=== PATIENT | male | born 1985 | race Asian ===

== ENCOUNTER 2018-08-02 10:07 | Inpatient (IN) | payer OTHER ==
[2018-08-02 10:18] VITALS: BMI 28.3
--- NOTE | 2018-08-02 10:57 | HP ---
CIWA Score - CIWA Score Nausea/Vomitin-No Nausea/No Vomiting Muscle Tremors: 1-None Visible, but [place] Anxiety: 4-Mod. Anxious/Guarded Agitation: 1-Slight > Activity Paroxysmal Sweats: No Perspiration Orientation: 0-Oriented Tacttile Disturbances: 0-None Auditory Disturbances: 0-None Visual Disturbances: 0-None Headache: 2-Mild CIWA-Ar Total Score: 8 Admission ROS BHS - HPI Allergies/Adverse Reactions: Allergies Allergy/AdvReac Type Severity Reaction Status Date / Time No Known Allergies Allergy Verified 08/02/18 10:41 History of Present Illness: patient here requesting detox from etoh use , reports 1 liter of whiskey / day x 3 years , longest sobriety x 1 month , detox 2-3 x , most recently 2 mo ago [facility] , denies w/d seizures , + blackouts, denies falls while intoxicated , latest this morning 2 beers. + intoxicated on exam . alex 0.112 symptoms as above in CIWA utox + bzo benzo : xanax 8 mg /day x 1 yr , latest last night 4 mg crack cocaine : 50 $ / week , lates 2 d ago cannabis : 1 j. weekly , latest last night tobacco : 2 ppd , requesting nrt w/ gum pmhx : denies pshx : denies psych : denies meds : denies - Ebola screening Have you traveled outside of the country in the last 21 days: No (N) Have you had contact with anyone from an Ebola affected area: No Have you been sick,other than usual withdrawal symptoms: No Do you have a fever: No - Review of Systems Constitutional: See HPI EENT: reports: See HPI Respiratory: reports: No Symptoms reported Cardiac: reports: No Symptoms Reported GI: reports: No Symptoms Reported : reports: No Symptoms Reported Musculoskeletal: reports: No Symptoms Reported Integumentary: reports: No Symptoms Reported Neuro: reports: See HPI, Headache Endocrine: reports: No Symptoms Reported Hematology: reports: No Symptoms Reported Psychiatric: reports: No Sypmtoms Reported, Judgement Intact, Orientated x3 Other Systems: Reviewed and Negative Patient History - Smoking Cessation Smoking history: Current every day smoker Have you smoked in the past 12 months: Yes Aproximately how many cigarettes per day: 40 Hx Chewing Tobacco Use: No Initiated information on smoking cessation: No - Substances Abused Crack Route: Smoking Frequency: 1-2 times per week Amount used: $50 Age of first use: 30 Date of Last Use: 07/31/18 Alcoholbeer/vodka/whisky Route: Oral Frequency: Daily Amount used: 2-6 pks./1 liter Age of first use: 16 Date of Last Use: 08/02/18 Xanax Route: Oral Frequency: 1-3 times last 30 days Amount used: 8 mg. Age of first use: 28 Date of Last Use: 08/01/18 Family Disease History - Family Disease History Family History: Denies Admission Physical Exam [facility] - Vital Signs Vital Signs: Vital Signs - 24 hr 08/02/18 10:16 Temperature 97.1 F L Pulse Rate 121 H Respiratory 18 Rate Blood Pressure 167/101 H - Physical General Appearance: Yes: Nourished, Appropriately Dressed, Disheveled, Mild Distress, Alcohol on Breath, Irritable, Sweating, Anxious HEENTM: Yes: Within Normal Limits, EOMI, Hearing grossly Normal, Normal ENT Inspection, Normocephalic, Normal Voice, MAURI, Pharynx Normal Respiratory: Yes: Within Normal Limits, Chest Non-Tender, Lungs Clear, Normal Breath Sounds, No Respiratory Distress, No Accessory Muscle Use Neck: Yes: Within Normal Limits, No masses,lesions,Nodules, Trachea in good position Breast: Yes: Breast Exam Deferred Cardiology: Yes: Regular Rhythm, Regular Rate, Tachycardia Abdominal: Yes: Within Normal Limits, Normal Bowel Sounds, Non Tender, Flat, Soft Genitourinary: Yes: Within Normal Limits Back: Yes: Within Normal Limits, Normal Inspection Musculoskeletal: Yes: Within Normal Limits, full range of Motion, Gait Steady, Pelvis Stable Extremities: Yes: Normal Capillary Refill, Normal Inspection, Normal Range of Motion, Non-Tender, Tremors Neurological: Yes: Within Normal Limits, Fully Oriented, Alert, Motor Strength 5 /5, Normal Mood/Affect, Normal Response Integumentary: Yes: Within Normal Limits, Normal Color, Dry, Warm Lymphatic: Yes: Within Normal Limits - Diagnostic (1) Alcohol withdrawal Current Visit: Yes Status: Acute Qualifiers: Complication of substance-induced condition: uncomplicated Qualified Code(s ): F10.230 - Alcohol dependence with withdrawal, uncomplicated BHS Breath Alcohol Content Breath Alcohol Content: 0.112 Urine Drug Screen - Results Drug Screen Negative: No Urine Drug Screen Results: BZO-Benzodiazepines
[2018-08-02] MEDS ORDERED: MAGNESIUM CITRATE 300 ML BOTTLE PO PRN (11:00)
[2018-08-02] MEDS ORDERED: P-EPHED 60MG/TRIPROLIDI 2.5MG TABLET PO PRN (11:00)
[2018-08-02] MEDS ORDERED: MAG HYDROX/AL HYDROX/SIMETH 30 ML UNIT-DOSE CUP PO PRN (11:00)
[2018-08-02] MEDS ORDERED: LOPERAMIDE HCL 2 MG CAPSULE PO PRN (11:00)
[2018-08-02] MEDS ORDERED: guaiFENesin/D-METHORPHAN HB 10 ML UNIT-DOSE CUPS PO PRN (11:00)
[2018-08-02] MEDS ORDERED: MENTHOL/PHENOL 1 EACH UD MM PRN (11:00)
[2018-08-02] MEDS ORDERED: MAGNESIUM HYDROX 2400MG/30ML ORAL SUSPENSION 30 ML CUP PO PRN (11:00)
[2018-08-02] MEDS ORDERED: diazePAM 5 MG TABLET PO ONE (12:15)
[2018-08-02] MEDS: NICOTINE POLACRILEX 4 MG GUM BUC PRN ×4 (13:11→20:01)
[2018-08-02] MEDS: IBUPROFEN 400 MG TABLET (FP) PO PRN ×2 (14:14→22:23)
[2018-08-02] MEDS: diazePAM 5 MG TABLET PO SCH ×2 (14:14→22:13)
[2018-08-02 17:10] LABS: URINE APPEARANCE CLEAR; URINE BILIRUBIN NEGATIVE (<2.0 mg/dL); URINE COLOR COLORLESS; URINE GLUCOSE (UA) NEGATIVE (NEGATIVE); URINE KETONE NEGATIVE (NEGATIVE); URINE LEUK ESTERASE NEGATIVE (NEGATIVE); URINE NITRITE NEGATIVE (NEGATIVE); URINE PROTEIN NEGATIVE (NEGATIVE); URINE UROBILINOGEN NEGATIVE mg/dL (0.2-1.0)
[2018-08-02] MEDS: diazePAM 5 MG TABLET PO PRN (17:11)
[2018-08-02] MEDS: ACETAMINOPHEN 325 MG TABLET (FP) PO PRN (18:03)
[2018-08-02] MEDS ORDERED: cloNIDine HCL 0.1 MG TABLET PO ONE (19:29)
[2018-08-02] MEDS ORDERED: MELATONIN 5 MG TABLETS PO PRN (22:00)
[2018-08-02] MEDS: THIAMINE HCL 100 MG TABLET (FP) PO SCH (22:13)
[2018-08-03] MEDS: diazePAM 5 MG TABLET PO PRN ×5 (01:43→21:13)
[2018-08-03] MEDS: NICOTINE POLACRILEX 4 MG GUM BUC PRN ×5 (04:49→18:45)
[2018-08-03] MEDS: diazePAM 5 MG TABLET PO SCH ×3 (05:50→23:08)
[2018-08-03] MEDS: ACETAMINOPHEN 325 MG TABLET (FP) PO PRN ×2 (07:44→17:48)
[2018-08-03] MEDS ORDERED: METOPROLOL TARTRATE 25 MG TABLET (FP) PO ONE (08:50)
--- NOTE | 2018-08-03 09:01 | PN ---
S CIWA - CIWA Score Nausea/Vomitin Muscle Tremors: 3 Anxiety: 3 Agitation: 3 Paroxysmal Sweats: 3 Orientation: 0-Oriented Tacttile Disturbances: 1-Very Mild Itch/Numbness Auditory Disturbances: 1-Very Mild Visual Disturbances: 1-Very Mild Sensitivity Headache: 2-Mild CIWA-Ar Total Score: 19 BHS COWS - Scale Resting Pulse: 4= MO > 121 Sweatin=Flushed/Facial Moisture Restless Observation: 1= Difficult to Sit Still Pupil Size: 1= Pupils >than Normal Bone or Joint Aches: 2= Severe Diffuse Aches Runny Nose/ Eye Tearin= Runny Nose/Eyes GI Upset > 30mins: 2= Nausea/Diarrhea Tremor Observation of Outstretched Hands: 2= Slight Tremor Visible Yawning Observation: 1= 1-2x During Session Anxiety or Irritability: 2=Irritable/Anxious Goose Flesh Skin: 3=Piloerection COWS Score: 22 S Progress Note (SOAP) Subjective: Anxiety, irritable, tremors, interrupted sleep Objective: 08/03/18 08:58 Vital Signs 08/03/18 06:27 Temperature 97 F L Pulse Rate 125 H Respiratory 18 Rate Blood Pressure 139/84 Laboratory Last Values Urine Color Colorless 08/02/18 13:45 Urine Appearance Clear 08/02/18 13:45 Urine pH 7.0 (5.0-8.0) 08/02/18 13:45 Ur Specific [place] 1.002 (1.001-1.035) 08/02/18 13:45 Urine Protein Negative (NEGATIVE) 08/02/18 13:45 Urine Glucose (UA) Negative (NEGATIVE) 08/02/18 13:45 Urine Ketones Negative (NEGATIVE) 08/02/18 13:45 Urine Blood Negative (NEGATIVE) 08/02/18 13:45 Urine Nitrite Negative (NEGATIVE) 08/02/18 13:45 Urine Bilirubin Negative (<2.0 mg/dL) 08/02/18 13:45 Urine Urobilinogen Negative mg/dL (0.2-1.0) 08/02/18 13:45 Ur Leukocyte Esterase Negative (NEGATIVE) 08/02/18 13:45 UA noted-negative Labs pending Elevated heart rate, denies chest pain or palpitation Assessment: 08/03/18 09:01 Withdrawal sx with associated tachycardia Plan: Continue detox 1 dose of metoprolol tartrate 25mg now Repeat HR 1 hr post dose administration
[2018-08-03] MEDS: PRENATAL VITAMINS W/ FOLIC ACID TABLET (FP) PO SCH (09:09)
[2018-08-03 11:25] LABS: HEMATOCRIT 43.7 % (35.4-49); HEMOGLOBIN 14.4 GM/dL (11.7-16.9); MCH 30.1 pg (25.7-33.7); MCHC 32.9 g/dl (32.0-35.9); MEAN CELL VOLUME 91.4 fl (80-96); MEAN PLT VOLUME 6.7 fl (7.5-11.1); PLATELET COUNT 440 K/MM3 (134-434); RBC 4.78 M/mm3 (4.00-5.60); RDW 14.1 % (11.9-15.9); WHITE BLOOD COUNT 11.3 K/mm3 (4.0-10.0)
[2018-08-03 11:38] LABS: ALBUMIN 3.7 g/dl (3.4-5.0); ALK PHOS 61 U/L (45-117); ANION GAP 9 MMOL/L (8-16); BILIRUBIN,TOTAL 0.3 mg/dL (0.2-1); BLOOD UREA NITROGEN 12 mg/dL (7-18); CALCIUM 8.8 mg/dL (8.5-10.1); CHLORIDE 101 mmol/L (98-107); CO2 26 mmol/L (21-32); CREATININE 0.6 mg/dL (0.55-1.3); GLUCOSE,RANDOM 114 mg/dL (74-106); POTASSIUM 4.1 mmol/L (3.5-5.1); SGOT/AST 37 U/L (15-37); SGPT/ALT 71 U/L (13-61); SODIUM 136 mmol/L (136-145); TOT PROT 6.9 g/dl (6.4-8.2)
[2018-08-03] MEDS ORDERED: PNEUMOC 13-VAL CONJ-DIP CRM/PF 0.5 ML DISP.SYRIN IM ONE (12:00)
[2018-08-03] MEDS ORDERED: FLU VACCINE QUAD 60 MCG/0.5 ML (MDV 18-19) IM ONE (12:00)
--- NOTE | 2018-08-03 13:10 | CONSULT ---
[facility] Psychiatric Consult - Data Date of interview: 08/03/18 Admission source: [facility] Identifying data: First admission to [facility] for this 33 y/o [place] male from [place] ancestry self-referred for detoxification treatment (alcohol,xanax) . Reports sporadic use of crack/cocaine and cannabis.Admitted to [address] [place] [address]. Patient is single without dependents,homeless,unemployed and reportedly deprived of financial assistance. Substance Abuse History: Discussed with the patient in this session.Mr Chang admits to consuming up to 2 pints of whiskey + 3 x 40 oz of beer on a daily basis (onset of abuse at age 16).Smokes two packs of cigarettes daily and abuse xanax 3-4 times a week. Details in current [facility] report that follows : Smoking history: Current every day smoker. Have you smoked in the past 12 months: Yes. Aproximately how many cigarettes per day: 40. Hx Chewing Tobacco Use: No. Initiated information on smoking cessation: No. - Substances Abused. Crack. Route: Smoking. Frequency: 1-2 times per week. Amount used: $50. Age of first use: 30. Date of Last Use: 07/31/18. Alcoholbeer/vodka/whisky. Route: Oral. Frequency: Daily. Amount used: 2-6 pks./1 liter. Age of first use: 16. Date of Last Use: 08/02/18. Xanax. Route: Oral. Frequency: 1-3 times last 30 days. Amount used: 8 mg. Age of first use: 28. Date of Last Use : 08/01/18 Medical History: Patient endorses good general health.Hypertension in the context of alcohol withdrawal. Psychiatric History: Patient reports a history of multiple psychiatric hospitalizations ([facility] in [facility], [facility]).Onset of psychiatric disturbances ( age 16).Started out with depression,anxiety for which the patient was prescribed , at the time, paroxetine and other unnamed medications.Diagnosed with MDD and " psychosis ". Patient is an approximate historian.Mr Chang indicates that he gets his psychiatric OPD care at the [facility] OPD clinic but the review of recent pharmacy claims shows refills for trazodone 200 mg/hs + gabapentin 400 mg/90 tab/30 days + wellbutrin XL 150 mg/day + paliperidone 9 mg/30 tab/30 days + cogentin 2 mg/day at [facility] in [place] (dated 06/02/18).Refills for lamotrigine from earlier dates : also noted, suggestive of the diagnosis of Bipolar Disorder.Patient states that he got medicated with Invega IM " around May or June ".Cannot recall the exact dose dispensed. Information about current outpatient psychiatric OPD care providers remains vague and imprecise.Patient declares that he " does not always follow with my appointments ", a clear indication of sub-optimal adherence to aftercare. No reported history of suicide attempts. Physical/Sexual Abuse/Trauma History: Patient denies. Additional Comment: Urine Drug Screen Results: BZO-Benzodiazepines.Noted. Mental Status Exam - Mental Status Exam Alert and Oriented to: Time, Place, Person Cognitive Function: Good Patient Appearance: Well Groomed (short stature,overweight) Mood: Nervous, Anxious Affect: Mood Congruent Patient Behavior: Appropriate, Cooperative (pleasant and well-mannered) Speech Pattern: Clear, Appropriate Voice Loudness: Normal Thought Process: Goal Oriented Thought Disorder: Not Present Hallucinations: Denies Suicidal Ideation: Denies Homicidal Ideation: Denies Insight/Judgement: Poor Sleep: Poorly, Difficulty falling asleep Appetite: Good Muscle strength/Tone: Normal Gait/Station: Normal Psychiatric Findings - Problem List ([place] 1, 2,3) (1) Sedative hypnotic or anxiolytic dependence Current Visit: Yes Status: Acute (2) Alcohol withdrawal Current Visit: Yes Status: Acute Qualifiers: Complication of substance-induced condition: uncomplicated Qualified Code(s ): F10.230 - Alcohol dependence with withdrawal, uncomplicated (3) Alcohol dependence Current Visit: Yes Status: Acute (4) Nicotine dependence Current Visit: Yes Status: Acute Qualifiers: Nicotine product type: cigarettes Substance use status: uncomplicated Qualified Code(s): F17.210 - Nicotine dependence, cigarettes, uncomplicated (5) Substance induced mood disorder Current Visit: Yes Status: Acute (6) Bipolar disorder Current Visit: Yes Status: Suspected Comment: Inferred from the medications on file + patient's self-report.Non compliance with aftercare. (7) Insomnia Current Visit: Yes Status: Acute (8) Non-compliance with treatment Current Visit: Yes Status: Chronic - Initial Treatment Plan Initial Treatment Plan: Psychoeducation.Sleep hygiene discussed in this session.Detoxification in progress.Confirmation of medications via review of pharmacy claims : done. Patient has requested to resume his usual psychotropic medications.Will continue care with : wellbutrin XL 150 mg po daily + trazodone 100 mg po hs + gabapentin 300 mg po tid + risperdal 0.5 mg po bid.Side effects/ benefits of each drug are discussed with the patient.Made aware, in particular, of the risk of priapism,seizures,galactorrhea,gynecomastia,sexual impotence and sedation.Mr Chang denies history of adverse effects from these medications and he agrees to adhere to this regimen.Observation.
[2018-08-03] MEDS: GABAPENTIN 300 MG CAPSULE (FP) PO SCH ×2 (14:34→23:08)
[2018-08-03] MEDS: IBUPROFEN 400 MG TABLET (FP) PO PRN (15:38)
[2018-08-03] MEDS ORDERED: cloNIDine HCL 0.1 MG TABLET PO ONE (18:15)
--- NOTE | 2018-08-03 19:00 | PN ---
BHS Progress Note Note: glucose 114,will do fasting glucose,ptient requested ensure plus 120 mls po bid
[2018-08-03] MEDS: traZODone HCL 50 MG TABLET (FP) PO SCH (23:08)
[2018-08-03] MEDS: THIAMINE HCL 100 MG TABLET (FP) PO SCH (23:08)
[2018-08-03] MEDS: risperiDONE 0.5 MG TABLET (FP) PO SCH (23:08)
[2018-08-04] MEDS: diazePAM 5 MG TABLET PO SCH ×3 (03:56→22:30)
[2018-08-04] MEDS: GABAPENTIN 300 MG CAPSULE (FP) PO SCH ×3 (05:35→22:28)
[2018-08-04] MEDS: NICOTINE POLACRILEX 4 MG GUM BUC PRN ×4 (05:36→18:40)
[2018-08-04] MEDS: ACETAMINOPHEN 325 MG TABLET (FP) PO PRN (06:49)
[2018-08-04] MEDS: diazePAM 5 MG TABLET PO PRN ×3 (08:02→18:14)
[2018-08-04] MEDS: risperiDONE 0.5 MG TABLET (FP) PO SCH ×2 (10:25→22:30)
[2018-08-04] MEDS: PRENATAL VITAMINS W/ FOLIC ACID TABLET (FP) PO SCH (10:25)
[2018-08-04] MEDS ORDERED: cloNIDine HCL 0.1 MG TABLET PO PRN (10:35)
[2018-08-04] MEDS: IBUPROFEN 400 MG TABLET (FP) PO PRN (12:33)
[2018-08-04] MEDS: hydrOXYzine PAMOATE 50 MG CAPSULE (FP) PO PRN (12:33)
[2018-08-04] MEDS: CYCLOBENZAPRINE HCL 10 MG TABLET (FP) PO PRN ×2 (12:33→22:28)
--- NOTE | 2018-08-04 17:38 | PN ---
S CIWA - CIWA Score Nausea/Vomitin Muscle Tremors: 4-Moderate,w/Arms Extend Anxiety: 4-Mod. Anxious/Guarded Agitation: 4-Moderately Restless Paroxysmal Sweats: 3 Orientation: 0-Oriented Tacttile Disturbances: 0-None Auditory Disturbances: 0-None Visual Disturbances: 0-None Headache: 0-None Present CIWA-Ar Total Score: 18 BHS Progress Note (SOAP) Subjective: Anxious, restless, tremor, interrupted sleep Objective: 08/04/18 17:35 Last Vital Signs Temp Pulse Resp BP Pulse Ox 99.2 F 114 H 18 133/88 08/04/18 14:46 08/04/18 14:46 08/04/18 14:46 08/04/18 14:46 Laboratory Tests 08/02/18 08/03/18 08/03/18 13:45 06:00 06:00 WBC 11.3 H RBC 4.78 Hgb 14.4 Hct 43.7 MCV 91.4 MCH 30.1 MCHC 32.9 RDW 14.1 Plt Count 440 H MPV 6.7 L Sodium 136 Potassium 4.1 Chloride 101 Carbon Dioxide 26 Anion Gap 9 BUN 12 Creatinine 0.6 Creat Clearance w eGFR > 60 Random Glucose 114 H Fasting Glucose Calcium 8.8 Total Bilirubin 0.3 AST 37 ALT 71 H Alkaline Phosphatase 61 Total Protein 6.9 Albumin 3.7 Urine Color Colorless Urine Appearance Clear Urine pH 7.0 Ur Specific [place] 1.002 Urine Protein Negative Urine Glucose (UA) Negative Urine Ketones Negative Urine Blood Negative Urine Nitrite Negative Urine Bilirubin Negative Urine Urobilinogen Negative Ur Leukocyte Esterase Negative RPR Titer 08/03/18 08/04/18 06:00 07:49 WBC RBC Hgb Hct MCV MCH MCHC RDW Plt Count MPV Sodium Potassium Chloride Carbon Dioxide Anion Gap BUN Creatinine Creat Clearance w eGFR Random Glucose Fasting Glucose 88 Calcium Total Bilirubin AST ALT Alkaline Phosphatase Total Protein Albumin Urine Color Urine Appearance Urine pH Ur Specific [place] Urine Protein Urine Glucose (UA) Urine Ketones Urine Blood Urine Nitrite Urine Bilirubin Urine Urobilinogen Ur Leukocyte Esterase RPR Titer Nonreactive Labs reviewed: wbc 11.3 Assessment: 08/04/18 17:36 Withdrawal sx Noted with leukocytosis Plan: Continue detox Clonidine, vistaril and flexeril prn added due to increased withdrawal symptoms Leukocytosis: asymptomatic, repeat CBC
[2018-08-04] MEDS: cloNIDine HCL 0.1 MG TABLET PO PRN ×2 (18:14→22:28)
[2018-08-04] MEDS: traZODone HCL 50 MG TABLET (FP) PO SCH (22:28)
[2018-08-04] MEDS: THIAMINE HCL 100 MG TABLET (FP) PO SCH (22:31)
[2018-08-05] MEDS: GABAPENTIN 300 MG CAPSULE (FP) PO SCH ×3 (05:32→22:19)
[2018-08-05] MEDS: diazePAM 5 MG TABLET PO PRN (05:33)
[2018-08-05 10:26] LABS: BASO % 0.3 % (0-2.0); EOS % 1.3 % (0-4.5); HEMATOCRIT 38.9 % (35.4-49); HEMOGLOBIN 12.5 GM/dL (11.7-16.9); LYMPH % 13.6 % (8-40); MCH 29.6 pg (25.7-33.7); MCHC 32.2 g/dl (32.0-35.9); MEAN CELL VOLUME 91.9 fl (80-96); MEAN PLT VOLUME 6.5 fl (7.5-11.1); NEUT % 78.8 % (42.8-82.8); PLATELET COUNT 334 K/MM3 (134-434); RBC 4.23 M/mm3 (4.00-5.60); RDW 14.5 % (11.9-15.9); WHITE BLOOD COUNT 19.4 K/mm3 (4.0-10.0)
[2018-08-05] MEDS: PRENATAL VITAMINS W/ FOLIC ACID TABLET (FP) PO SCH (10:32)
[2018-08-05] MEDS: CYCLOBENZAPRINE HCL 10 MG TABLET (FP) PO PRN ×2 (10:32→16:58)
[2018-08-05] MEDS: risperiDONE 0.5 MG TABLET (FP) PO SCH ×2 (10:32→22:19)
[2018-08-05] MEDS: diazePAM 5 MG TABLET PO SCH ×2 (10:32→22:19)
[2018-08-05] MEDS: NICOTINE POLACRILEX 4 MG GUM BUC PRN ×3 (11:41→20:24)
[2018-08-05] MEDS: IBUPROFEN 400 MG TABLET (FP) PO PRN ×2 (11:41→22:51)
--- NOTE | 2018-08-05 13:54 | PN ---
BHS Progress Note (SOAP) Subjective: Interrupted sleep, tremor, chills, sweating Objective: 08/05/18 13:49 Last Vital Signs Temp Pulse Resp BP Pulse Ox 98.6 F 113 H 20 133/73 08/05/18 13:48 08/05/18 13:48 08/05/18 13:48 08/05/18 13:48 Laboratory Tests 08/02/18 08/03/18 08/03/18 13:45 06:00 06:00 WBC 11.3 H RBC 4.78 Hgb 14.4 Hct 43.7 MCV 91.4 MCH 30.1 MCHC 32.9 RDW 14.1 Plt Count 440 H MPV 6.7 L Absolute Neuts (auto) Neutrophils % Lymphocytes % Monocytes % Eosinophils % Basophils % Nucleated RBC % Sodium 136 Potassium 4.1 Chloride 101 Carbon Dioxide 26 Anion Gap 9 BUN 12 Creatinine 0.6 Creat Clearance w eGFR > 60 Random Glucose 114 H Fasting Glucose Calcium 8.8 Total Bilirubin 0.3 AST 37 ALT 71 H Alkaline Phosphatase 61 Total Protein 6.9 Albumin 3.7 Urine Color Colorless Urine Appearance Clear Urine pH 7.0 Ur Specific [place] 1.002 Urine Protein Negative Urine Glucose (UA) Negative Urine Ketones Negative Urine Blood Negative Urine Nitrite Negative Urine Bilirubin Negative Urine Urobilinogen Negative Ur Leukocyte Esterase Negative RPR Titer 08/03/18 08/04/18 08/05/18 06:00 07:49 07:00 WBC 19.4 H RBC 4.23 Hgb 12.5 Hct 38.9 MCV 91.9 MCH 29.6 MCHC 32.2 RDW 14.5 Plt Count 334 D MPV 6.5 L Absolute Neuts (auto) 15.3 H Neutrophils % 78.8 Lymphocytes % 13.6 Monocytes % 6.0 Eosinophils % 1.3 Basophils % 0.3 Nucleated RBC % 0 Sodium Potassium Chloride Carbon Dioxide Anion Gap BUN Creatinine Creat Clearance w eGFR Random Glucose Fasting Glucose 88 Calcium Total Bilirubin AST ALT Alkaline Phosphatase Total Protein Albumin Urine Color Urine Appearance Urine pH Ur Specific [place] Urine Protein Urine Glucose (UA) Urine Ketones Urine Blood Urine Nitrite Urine Bilirubin Urine Urobilinogen Ur Leukocyte Esterase RPR Titer Nonreactive Labs reviewed: wbc 19.4 (was 11.3) Assessment: 08/05/18 13:52 Withdrawal sxs Noted with leukocytosis Plan: Continue detox Leukocytosis: asymptomatic, repeat CBC, chest xray today
[2018-08-05] MEDS: hydrOXYzine PAMOATE 50 MG CAPSULE (FP) PO PRN (14:01)
[2018-08-05] MEDS: cloNIDine HCL 0.1 MG TABLET PO PRN (20:58)
[2018-08-05] MEDS: THIAMINE HCL 100 MG TABLET (FP) PO SCH (22:19)
[2018-08-05] MEDS: traZODone HCL 50 MG TABLET (FP) PO SCH (22:19)
[2018-08-06] MEDS: hydrOXYzine PAMOATE 50 MG CAPSULE (FP) PO PRN (00:38)
[2018-08-06] MEDS: CYCLOBENZAPRINE HCL 10 MG TABLET (FP) PO PRN (05:38)
[2018-08-06] MEDS: GABAPENTIN 300 MG CAPSULE (FP) PO SCH (05:38)
[2018-08-06] MEDS: cloNIDine HCL 0.1 MG TABLET PO PRN (05:49)
[2018-08-06] MEDS: ACETAMINOPHEN 325 MG TABLET (FP) PO PRN (09:20)
[2018-08-06 09:30] VITALS: BP 116/74; PULSE 105; TEMP 96.9
[2018-08-06] MEDS ORDERED: AZITHROMYCIN 250 MG TABLET PO ONE (10:00)
[2018-08-06] MEDS ORDERED: diazePAM 5 MG TABLET PO SCH ×2 (10:00)
[2018-08-06] MEDS: risperiDONE 0.5 MG TABLET (FP) PO SCH (10:23)
[2018-08-06] MEDS: PRENATAL VITAMINS W/ FOLIC ACID TABLET (FP) PO SCH (10:23)
[2018-08-06 10:33] LABS: BASO % 0.4 % (0-2.0); EOS % 2.3 % (0-4.5); HEMATOCRIT 39.8 % (35.4-49); HEMOGLOBIN 12.7 GM/dL (11.7-16.9); LYMPH % 24.6 % (8-40); MCH 29.8 pg (25.7-33.7); MCHC 31.8 g/dl (32.0-35.9); MEAN CELL VOLUME 93.8 fl (80-96); MEAN PLT VOLUME 6.8 fl (7.5-11.1); MONO % 6.8 % (3.8-10.2); NEUT % 65.9 % (42.8-82.8); PLATELET COUNT 321 K/MM3 (134-434); RBC 4.25 M/mm3 (4.00-5.60); WHITE BLOOD COUNT 14.1 K/mm3 (4.0-10.0)
[2018-08-07] MEDS ORDERED: AZITHROMYCIN 250 MG TABLET PO SCH (10:00)
== END 2018-08-06 13:43 | disposition other institution (70) | DRG 774 ==
LOC: YASAS 10:07 → Y3N 12:01
PROC: HZ2ZZZZ Detoxification Services for Substance Abuse Treatment (ICD-10-PCS; principal; 2018-08-02)
DX: F10.230 Alcohol dependence with withdrawal, uncomplicated (principal); F13.10 Sedative, hypnotic or anxiolytic abuse, uncomplicated; F14.90 Cocaine use, unspecified, uncomplicated; F17.210 Nicotine dependence, cigarettes, uncomplicated; F41.9 Anxiety disorder, unspecified; F19.24 Other psychoactive substance dependence with psychoactive substance-induced mood disorder; F31.9 Bipolar disorder, unspecified; D72.829 Elevated white blood cell count, unspecified; G47.00 Insomnia, unspecified; R00.0 Tachycardia, unspecified; Z91.19 Patient's noncompliance with other medical treatment and regimen; Z59.0 Homelessness
CPT/HCPCS: 36415; 71046-TC-FY; 80053; 81003; 82947; 85025; 85027; 86593; 90670; 90688; G0008; G0009; J0735

== ENCOUNTER 2018-08-06 12:30 | Inpatient (IN) | payer OTHER ==
[2018-08-06] MEDS ORDERED: MAGNESIUM CITRATE 300 ML BOTTLE PO PRN (13:44)
[2018-08-06] MEDS ORDERED: LOPERAMIDE HCL 2 MG CAPSULE PO PRN (13:44)
[2018-08-06] MEDS ORDERED: MAGNESIUM HYDROX 2400MG/30ML ORAL SUSPENSION 30 ML CUP PO PRN (13:44)
[2018-08-06] MEDS ORDERED: MENTHOL/PHENOL 1 EACH UD MM PRN (13:44)
[2018-08-06] MEDS ORDERED: MAG HYDROX/AL HYDROX/SIMETH 30 ML UNIT-DOSE CUP PO PRN (13:44)
[2018-08-06] MEDS ORDERED: P-EPHED 60MG/TRIPROLIDI 2.5MG TABLET PO PRN (13:44)
--- NOTE | 2018-08-06 14:37 | DS ---
[facility] Detox Discharge Summary Admission Date: 08/06/18 Discharge Date: 08/06/18 - History Present History: Alcohol Dependence, Cocaine Dependence, Sedative Dependence Additional Comments: admitted to rehab from detox Noted with leukocytosis; when questioned about reason for elevated wbc, patient reported sore throat, dry cough and losing his voice x 2 days. He denies sob or chest pain PE: Mouth: moist mucous membranes Throat: moderate pharyngeal erythema without exudates Neck: supple, FROM, no lymphadenopathy Resp: lungs ctab/l, no adventitious breath sounds CV: rrr, s1s2+ Skin: warm to touch, turgor good Dx: acute pharyngitis; leukocytosis most likely secondary to pharyngitis Plan: encouraged PO water intake, continue robitussin cough dm and throat lozenges prn, started on Z [place] Leukocytosis: wbc trending downwards, repeat cbc in am, chest xray done (follow up on result) Pertinent Past History: Denies - Physical Exam Results Vital Signs: Vital Signs Temperature 98.7 F 08/06/18 13:40 Pulse Rate 118 H 08/06/18 13:40 Respiratory Rate 18 08/06/18 13:40 Blood Pressure 132/72 08/06/18 13:40 O2 Sat by Pulse Oximetry (%) Pertinent Admission Physical Exam Findings: Withdrawal sxs Labs reviewed: wbc 14.1>>19.4>>11.3 - Treatment Hospital Course: Detox Protocol Followed, Detoxed Safely, Responded well, Discharged Condition Good, Rehab Referral Accepted - Medication Discharge Medications: Ambulatory Orders Bupropion HCl [Wellbutrin Xl] 300 mg PO DAILY 08/06/18 Haloperidol [Haldol -] 5 mg PO DAILY 08/06/18 Paliperidone [Invega -] 6 mg PO DAILY 08/06/18 Trazodone HCl 200 mg PO HS 08/06/18 - Diagnosis (1) Pharyngitis Current Visit: Yes Status: Acute (2) Alcohol dependence with withdrawal, uncomplicated Current Visit: Yes Status: Acute (3) Insomnia Current Visit: Yes Status: Acute (4) Leukocytosis Current Visit: Yes Status: Acute (5) Sedative hypnotic or anxiolytic dependence Current Visit: Yes Status: Acute (6) Substance induced mood disorder Current Visit: Yes Status: Acute (7) Anxiety Current Visit: Yes Status: Chronic (8) Bipolar disorder Current Visit: Yes Status: Chronic (9) Cocaine use disorder Current Visit: Yes Status: Chronic (10) Nicotine dependence Current Visit: Yes Status: Chronic Qualifiers: Nicotine product type: cigarettes Substance use status: uncomplicated Qualified Code(s): F17.210 - Nicotine dependence, cigarettes, uncomplicated - AMA Did Patient Leave Against Medical Advice: No (admitted to rehab)
--- NOTE | 2018-08-06 17:35 | PN ---
[facility] Progress Note Note: Psychiatric nurse practitioner note: Chart reviewed. Patient seen by Dr. Jordan on 3N. Medications reviewed with patient. Will continue patent's current medications of Wellbutrin 150mg XL + Gabapentin 300mg TID risperdal 0.5mg BID + trazodone 100mg. Verbal consent given.
[2018-08-06] MEDS: NICOTINE POLACRILEX 2 MG GUM BUC PRN ×2 (18:35→22:24)
[2018-08-06] MEDS: hydrOXYzine PAMOATE 25 MG CAPSULE (FP) PO PRN (18:52)
[2018-08-06] MEDS: THIAMINE HCL 100 MG TABLET (FP) PO SCH (21:17)
[2018-08-06] MEDS: traZODone HCL 100 MG TABLET (FP) PO SCH (21:18)
[2018-08-06] MEDS: risperiDONE 0.5 MG TABLET (FP) PO SCH (21:18)
[2018-08-06] MEDS: IBUPROFEN 400 MG TABLET (FP) PO PRN (21:18)
[2018-08-06] MEDS: GABAPENTIN 300 MG CAPSULE (FP) PO SCH (21:18)
[2018-08-06] MEDS ORDERED: MELATONIN 5 MG TABLETS PO PRN (22:00)
[2018-08-07] MEDS: hydrOXYzine PAMOATE 25 MG CAPSULE (FP) PO PRN (04:15)
[2018-08-07] MEDS: GABAPENTIN 300 MG CAPSULE (FP) PO SCH (06:17)
--- NOTE | 2018-08-07 06:37 | HP ---
Psychiatrist Admission - Data Date of interview: 08/07/18 Admission source: 3N Identifying data: This is the first [facility] admission for this 33 years old single -[place] male, unemployed, homeless Medical History: Patient endorses good general health except hypertension in the context of alcohol withdrawal. Smokes cigarettes 2 ppd Psychiatric History: Patient reports that his first psychiatric contact was at age 16 when he was admitted to [facility] diagnosed with MDD and started on Paxil. Reports that he was diagnosed with ADHD at 21 and started on Strattera. In 2015, while admitted to [facility], his diagnosis was revised to Bipolar Disorder. He is known to [facility] in [facility]. His last psychiatric contact was at [facility] where he completed 6 month residential treatment for 6 months on Jun 13, 2018. He was discharged on Wellbutrin XL 300 mg/day, Gabapentin 400 mg BID, Invega 9 mg/day, Cogentin 2 mg/day and Strattera 40 mg po BID. Claims that before his discharge he was given Invega injection. 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 He was seen by Dr Jordan on 08/03/18 while in detox and he was prescribed Wellbutrin XL 150 mg/day, Gabapentin 300 mg TID, Trazadone 100 mg po HS and Risperdal 0.5 mg po BID. Requests that his medications dosage be readjusted to what he was on before admission to this facility. Denies history of suicidal attempt. According to Dr Jordan Whom patient saw while in detox, review of recent pharmacy claims shows refills for Trazodone 200 mg/hs + Gabapentin 400 mg/90 tab /30 days + Wellbutrin XL 150 mg/day + Paliperidone 9 mg/30 tab/30 days + Cogentin 2 mg/day at [facility] (dated 06/02/18). At present, Mr Chang reports feeling anxious and sleeping poorly Physical/Sexual Abuse/Trauma History: Denies history of emotional, physical or sexual abuse as well as DV relationship. No service Additional Comment: Denies criminal history Vital Signs: Vital Signs - 24 hr 08/06/18 08/07/18 13:40 00:30 Temperature 98.7 F Pulse Rate 118 H Respiratory 18 18 Rate Blood Pressure 132/72 Allergies/Adverse Reactions: Allergies Allergy/AdvReac Type Severity Reaction Status Date / Time No Known Allergies Allergy Verified 08/06/18 12:46 Date of last physical exam: 08/02/18 Concur with the findings of this exam: Yes - Substance Abuse/Tx History Hx Alcohol Use: Yes Hx Substance Use: Yes Substance Use Type: Alcohol (Started drinking alcohol at age 16, consumes one liter of vodka or whiskey & 2x 6pk of beer daily. Last drank on 08/02/18), Cocaine (Started smoking crack cocaine at age 30, consumes $50 worth 1-2 times weekly. Last smoked on 07/31/18) Hx Substance Use Treatment: Yes (4-5 previous inpt detox & 5-6 inpt rehab( [facility])) Mental Status Exam - Mental Status Exam Alert and Oriented to: Time, Place, Person Cognitive Function: Fair Patient Appearance: Well Groomed Mood: Anxious Affect: Appropriate Patient Behavior: Cooperative Speech Pattern: Clear Voice Loudness: Normal Thought Process: Intact Thought Disorder: Not Present Hallucinations: Denies Suicidal Ideation: Denies Homicidal Ideation: Denies Insight/Judgement: Fair Sleep: Poorly Appetite: Fair Muscle strength/Tone: Normal Gait/Station: Normal Psychiatric Findings - Problem List ([place] 1, 2,3) (1) Alcohol dependence Current Visit: Yes Status: Acute (2) Cocaine dependence Current Visit: Yes Status: Acute (3) Nicotine dependence Current Visit: Yes Status: Chronic Qualifiers: Nicotine product type: cigarettes Substance use status: uncomplicated Qualified Code(s): F17.210 - Nicotine dependence, cigarettes, uncomplicated (4) Bipolar disorder Current Visit: Yes Status: Chronic Comment: Inferred from the medications on file + patient's self-report.Non compliance with aftercare. (5) ADHD (attention deficit hyperactivity disorder) Current Visit: Yes Status: Chronic (6) Substance-induced anxiety disorder Current Visit: Yes Status: Acute (7) Substance-induced sleep disorder Current Visit: Yes Status: Acute - Initial Treatment Plan Initial Treatment Plan: 1) Continue Trazadone 100 mg po HSS. 2) Start Wellbutrin XL 300 mg po daily, Gabapentin 400 mg po TID, Risperdal 3 mg po BID, Cogentin 0.5 mg po BID and Strattera 50 mg po daily. 3) Monitor progress
[2018-08-07 10:27] LABS: BASO % 0.4 % (0-2.0); EOS % 3.3 % (0-4.5); HEMATOCRIT 37.9 % (35.4-49); HEMOGLOBIN 12.6 GM/dL (11.7-16.9); LYMPH % 28.1 % (8-40); MCH 30.6 pg (25.7-33.7); MCHC 33.1 g/dl (32.0-35.9); MEAN CELL VOLUME 92.4 fl (80-96); MEAN PLT VOLUME 6.7 fl (7.5-11.1); MONO % 10.4 % (3.8-10.2); NEUT % 57.8 % (42.8-82.8); PLATELET COUNT 339 K/MM3 (134-434); RBC 4.11 M/mm3 (4.00-5.60); RDW 14.1 % (11.9-15.9)
[2018-08-07] MEDS: PRENATAL VITAMINS W/ FOLIC ACID TABLET (FP) PO SCH (10:29)
[2018-08-07] MEDS: NICOTINE 14 MG/24 HOURS TOPICAL PATCH TD SCH (10:29)
[2018-08-07] MEDS: BENZTROPINE MESYLATE 1 MG TABLET (FP) PO SCH ×2 (10:51→21:28)
[2018-08-07] MEDS: risperiDONE 3 MG TABLET PO SCH ×2 (10:52→21:27)
[2018-08-07] MEDS: AZITHROMYCIN 250 MG TABLET PO SCH (11:05)
[2018-08-07] MEDS: ATOMOXETINE HCL 25 MG CAPSULE PO SCH (11:05)
[2018-08-07] MEDS: risperiDONE 0.5 MG TABLET (FP) PO SCH (11:07)
[2018-08-07 11:18] LABS: ANISOCYTOSIS 0; MACROCYTOSIS 0; PLATELET ESTIMATE NORMAL
[2018-08-07] MEDS: hydrOXYzine PAMOATE 50 MG CAPSULE (FP) PO PRN ×2 (12:17→16:38)
[2018-08-07] MEDS: GABAPENTIN 400 MG CAPSULE (FP) PO SCH ×2 (14:12→21:27)
[2018-08-07] MEDS: cloNIDine HCL 0.1 MG TABLET PO PRN (18:57)
[2018-08-07] MEDS: NICOTINE POLACRILEX 2 MG GUM BUC PRN (18:58)
[2018-08-07] MEDS: traZODone HCL 100 MG TABLET (FP) PO SCH (21:27)
[2018-08-07] MEDS: THIAMINE HCL 100 MG TABLET (FP) PO SCH (21:27)
[2018-08-08] MEDS: hydrOXYzine PAMOATE 50 MG CAPSULE (FP) PO PRN ×4 (01:16→20:25)
[2018-08-08] MEDS: NICOTINE POLACRILEX 2 MG GUM BUC PRN ×4 (06:19→16:58)
[2018-08-08] MEDS: GABAPENTIN 400 MG CAPSULE (FP) PO SCH ×3 (06:19→21:26)
[2018-08-08] MEDS: risperiDONE 3 MG TABLET PO SCH ×2 (10:08→21:26)
[2018-08-08] MEDS: BENZTROPINE MESYLATE 1 MG TABLET (FP) PO SCH ×2 (10:08→21:25)
[2018-08-08] MEDS: PRENATAL VITAMINS W/ FOLIC ACID TABLET (FP) PO SCH (10:08)
[2018-08-08] MEDS: AZITHROMYCIN 250 MG TABLET PO SCH (10:08)
[2018-08-08] MEDS: NICOTINE 14 MG/24 HOURS TOPICAL PATCH TD SCH (10:08)
[2018-08-08] MEDS: ATOMOXETINE HCL 25 MG CAPSULE PO SCH (10:08)
--- NOTE | 2018-08-08 10:15 | PN ---
S Progress Note Note: C/O MUSCLE SPASMS/TWITCHES. STATES HE IS WITHDRAWING AFTER DETOXING A DA OR TWO AGO. Vital Signs 08/08/18 08/08/18 03:30 06:31 Temperature 97.5 F L Pulse Rate 97 H Respiratory 18 16 Rate Blood Pressure 136/83 Laboratory Tests 08/07/18 07:00 WBC 9.0 RBC 4.11 Hgb 12.6 Hct 37.9 MCV 92.4 MCH 30.6 MCHC 33.1 RDW 14.1 Plt Count 339 MPV 6.7 L Absolute Neuts (auto) 5.2 Neutrophils % 57.8 Neutrophils % (Manual) 61.6 Band Neutrophils % 0.0 Lymphocytes % 28.1 Lymphocytes % (Manual) 26.3 Monocytes % 10.4 H Monocytes % (Manual) 6 Eosinophils % 3.3 Eosinophils % (Manual) 5.0 H Basophils % 0.4 Basophils % (Manual) 0.0 Myelocytes % (Man) 1 Promyelocytes % (Man) 0 Blast Cells % (Manual) 0 Nucleated RBC % 0 Metamyelocytes 0 Hypochromia 0 Platelet Estimate Normal Polychromasia 0 Poikilocytosis 0 Anisocytosis 0 Microcytosis 0 Macrocytosis 0 PLAN:FLEXERIL 10 MG PO TID, FIRST DOSE NOW.
[2018-08-08] MEDS ORDERED: CYCLOBENZAPRINE HCL 10 MG TABLET (FP) PO ONE (10:24)
[2018-08-08] MEDS: IBUPROFEN 400 MG TABLET (FP) PO PRN (16:56)
[2018-08-08] MEDS: cloNIDine HCL 0.1 MG TABLET PO PRN (17:48)
[2018-08-08] MEDS: ACETAMINOPHEN 325 MG TABLET (FP) PO PRN (20:25)
[2018-08-08] MEDS: THIAMINE HCL 100 MG TABLET (FP) PO SCH (21:25)
[2018-08-08] MEDS: traZODone HCL 100 MG TABLET (FP) PO SCH (21:25)
[2018-08-09] MEDS: hydrOXYzine PAMOATE 50 MG CAPSULE (FP) PO PRN ×3 (06:49→21:42)
[2018-08-09] MEDS: GABAPENTIN 400 MG CAPSULE (FP) PO SCH ×3 (06:49→21:43)
[2018-08-09] MEDS: NICOTINE POLACRILEX 2 MG GUM BUC PRN ×4 (07:44→21:44)
[2018-08-09] MEDS: cloNIDine HCL 0.1 MG TABLET PO PRN (10:17)
[2018-08-09] MEDS: BENZTROPINE MESYLATE 1 MG TABLET (FP) PO SCH ×2 (10:18→21:42)
[2018-08-09] MEDS: risperiDONE 3 MG TABLET PO SCH ×2 (10:18→21:42)
[2018-08-09] MEDS: AZITHROMYCIN 250 MG TABLET PO SCH (10:18)
[2018-08-09] MEDS: ATOMOXETINE HCL 25 MG CAPSULE PO SCH (10:19)
[2018-08-09] MEDS: PRENATAL VITAMINS W/ FOLIC ACID TABLET (FP) PO SCH (10:19)
[2018-08-09] MEDS: NICOTINE 14 MG/24 HOURS TOPICAL PATCH TD SCH (10:20)
[2018-08-09] MEDS: guaiFENesin/D-METHORPHAN HB 10 ML UNIT-DOSE CUPS PO PRN ×2 (13:20→22:42)
[2018-08-09] MEDS: CYCLOBENZAPRINE HCL 10 MG TABLET (FP) PO PRN (13:25)
--- NOTE | 2018-08-09 18:16 | PN ---
S Progress Note Note: Psychiatric nurse practitioner note: Patient reports poor sleep. he reports h/o accepting traozodne 200mg qhs. he is currently prescribed trazodone 100. Will increase dose to 150mg qhs. Verbal consent given.
[2018-08-09] MEDS: traZODone HCL 50 MG TABLET (FP) PO SCH (21:43)
[2018-08-09] MEDS: THIAMINE HCL 100 MG TABLET (FP) PO SCH (21:43)
[2018-08-09] MEDS: IBUPROFEN 600 MG TABLET (FP) PO PRN (22:42)
[2018-08-10] MEDS: GABAPENTIN 400 MG CAPSULE (FP) PO SCH ×3 (06:38→21:34)
[2018-08-10] MEDS: CYCLOBENZAPRINE HCL 10 MG TABLET (FP) PO PRN ×2 (06:39→14:32)
[2018-08-10] MEDS: hydrOXYzine PAMOATE 50 MG CAPSULE (FP) PO PRN ×3 (06:39→22:10)
[2018-08-10] MEDS: IBUPROFEN 600 MG TABLET (FP) PO PRN ×2 (07:33→21:34)
[2018-08-10] MEDS: NICOTINE POLACRILEX 2 MG GUM BUC PRN ×4 (07:33→22:10)
[2018-08-10] MEDS: BENZTROPINE MESYLATE 1 MG TABLET (FP) PO SCH ×2 (10:05→21:33)
[2018-08-10] MEDS: ATOMOXETINE HCL 25 MG CAPSULE PO SCH (10:06)
[2018-08-10] MEDS: NICOTINE 14 MG/24 HOURS TOPICAL PATCH TD SCH (10:06)
[2018-08-10] MEDS: risperiDONE 3 MG TABLET PO SCH ×2 (10:06→21:33)
[2018-08-10] MEDS: PRENATAL VITAMINS W/ FOLIC ACID TABLET (FP) PO SCH (10:06)
[2018-08-10] MEDS: guaiFENesin/D-METHORPHAN HB 10 ML UNIT-DOSE CUPS PO PRN (19:00)
[2018-08-10] MEDS: traZODone HCL 50 MG TABLET (FP) PO SCH (21:33)
[2018-08-10] MEDS: THIAMINE HCL 100 MG TABLET (FP) PO SCH (21:35)
[2018-08-11] MEDS: hydrOXYzine PAMOATE 50 MG CAPSULE (FP) PO PRN ×3 (02:30→17:35)
[2018-08-11] MEDS: GABAPENTIN 400 MG CAPSULE (FP) PO SCH ×3 (06:23→21:50)
[2018-08-11] MEDS: ATOMOXETINE HCL 25 MG CAPSULE PO SCH (09:53)
[2018-08-11] MEDS: NICOTINE 14 MG/24 HOURS TOPICAL PATCH TD SCH (09:53)
[2018-08-11] MEDS: risperiDONE 3 MG TABLET PO SCH ×2 (09:53→21:50)
[2018-08-11] MEDS: BENZTROPINE MESYLATE 1 MG TABLET (FP) PO SCH ×2 (09:54→21:50)
[2018-08-11] MEDS: PRENATAL VITAMINS W/ FOLIC ACID TABLET (FP) PO SCH (09:54)
[2018-08-11] MEDS: NICOTINE POLACRILEX 2 MG GUM BUC PRN ×2 (13:06→20:06)
[2018-08-11] MEDS: IBUPROFEN 600 MG TABLET (FP) PO PRN (14:50)
[2018-08-11] MEDS: ACETAMINOPHEN 325 MG TABLET (FP) PO PRN (20:05)
[2018-08-11] MEDS: traZODone HCL 50 MG TABLET (FP) PO SCH (21:49)
[2018-08-11] MEDS: THIAMINE HCL 100 MG TABLET (FP) PO SCH (21:50)
[2018-08-11] MEDS: CYCLOBENZAPRINE HCL 10 MG TABLET (FP) PO PRN (22:15)
[2018-08-12] MEDS: hydrOXYzine PAMOATE 50 MG CAPSULE (FP) PO PRN ×3 (04:16→14:59)
[2018-08-12] MEDS: GABAPENTIN 400 MG CAPSULE (FP) PO SCH ×3 (06:20→21:31)
[2018-08-12] MEDS: CYCLOBENZAPRINE HCL 10 MG TABLET (FP) PO PRN ×3 (06:20→21:32)
[2018-08-12] MEDS: ATOMOXETINE HCL 25 MG CAPSULE PO SCH (10:01)
[2018-08-12] MEDS: PRENATAL VITAMINS W/ FOLIC ACID TABLET (FP) PO SCH (10:01)
[2018-08-12] MEDS: risperiDONE 3 MG TABLET PO SCH ×2 (10:02→21:31)
[2018-08-12] MEDS: NICOTINE 14 MG/24 HOURS TOPICAL PATCH TD SCH (10:02)
[2018-08-12] MEDS: BENZTROPINE MESYLATE 1 MG TABLET (FP) PO SCH ×2 (10:02→21:32)
[2018-08-12] MEDS: NICOTINE POLACRILEX 2 MG GUM BUC PRN ×2 (12:29→14:20)
[2018-08-12] MEDS: THIAMINE HCL 100 MG TABLET (FP) PO SCH (21:31)
[2018-08-12] MEDS: traZODone HCL 50 MG TABLET (FP) PO SCH (21:31)
[2018-08-13] MEDS: IBUPROFEN 600 MG TABLET (FP) PO PRN ×2 (06:25→12:38)
[2018-08-13] MEDS: GABAPENTIN 400 MG CAPSULE (FP) PO SCH ×3 (06:25→21:45)
[2018-08-13] MEDS: CYCLOBENZAPRINE HCL 10 MG TABLET (FP) PO PRN ×2 (06:26→21:46)
[2018-08-13] MEDS: hydrOXYzine PAMOATE 50 MG CAPSULE (FP) PO PRN ×2 (06:26→09:50)
[2018-08-13] MEDS: NICOTINE 14 MG/24 HOURS TOPICAL PATCH TD SCH (09:47)
[2018-08-13] MEDS: PRENATAL VITAMINS W/ FOLIC ACID TABLET (FP) PO SCH (09:50)
[2018-08-13] MEDS: ATOMOXETINE HCL 25 MG CAPSULE PO SCH (09:50)
[2018-08-13] MEDS: BENZTROPINE MESYLATE 1 MG TABLET (FP) PO SCH ×2 (09:50→21:46)
[2018-08-13] MEDS: risperiDONE 3 MG TABLET PO SCH ×2 (09:51→21:48)
--- NOTE | 2018-08-13 12:13 | PN ---
Psychiatric Progress Note Vital Signs: Vital Signs Period Temp Pulse Resp BP Sys/Amaya Pulse Ox Last 24 Hr 97.4 F 90 18-18 113/69 Date of Session: 08/13/18 Chief Complaint:: Discharge Note HPI: Patient addressing Alcohol and Cocaine Dependence comorbid with Nicotine Dependence, Bipolar Disorder, ADHD, Substance-Induced Mood Disorder and Substance-Induced Sleep Disorder Current Medications: Active Medications Generic Name Dose Route Start Last Admin Trade Name Freq PRN Reason Stop Dose Admin Acetaminophen 650 mg 08/06/18 13:44 08/11/18 20:05 Tylenol - PO 650 mg Q4H PRN Administration FEVER Al Hydroxide/Mg Hydroxide 30 ml 08/06/18 13:44 Mylanta Oral Suspension - PO Q6H PRN DYSPEPSIA Atomoxetine HCl 50 mg 08/07/18 10:45 08/13/18 09:50 Strattera - PO 50 mg DAILY GUILLERMO Administration Benztropine Mesylate 0.5 mg 08/07/18 10:45 08/13/18 09:50 Cogentin - PO 0.5 mg BID GUILLERMO Administration Bupropion HCl 300 mg 08/07/18 10:30 08/13/18 09:50 Wellbutrin Xl - PO 300 mg DAILY GUILLERMO Administration Clonidine 0.1 mg 08/06/18 13:45 08/09/18 10:17 Catapres - PO 0.1 mg Q8H PRN Administration ANXIETY Cyclobenzaprine HCl 10 mg 08/08/18 10:12 08/13/18 06:26 Flexeril - PO 10 mg TID PRN Administration WITHDRAWAL(CONT SUBST) Eucalyptus/Menthol/Phenol/Sorbitol 1 each 08/06/18 13:44 Cepastat Lozenge - MM Q4H PRN SORE THROAT Gabapentin 400 mg 08/07/18 14:00 08/13/18 06:25 Neurontin - PO 400 mg TID GUILLERMO Administration Guaifenesin 10 ml 08/06/18 13:44 08/10/18 19:00 Robitussin Dm - PO 10 ml Q6H PRN Administration COUGH Hydroxyzine Pamoate 50 mg 08/07/18 10:19 08/13/18 09:50 Vistaril - PO 50 mg Q4H PRN Administration FOR ITCHING Ibuprofen 600 mg 08/09/18 15:20 08/13/18 06:25 Motrin - PO 600 mg Q6H PRN Administration Pain Level 4-6 Loperamide HCl 4 mg 08/06/18 13:44 Imodium - PO Q6H PRN DIARRHEA Magnesium Citrate 300 ml 08/06/18 13:44 Citroma - PO Q48H PRN CONSTIPATION Magnesium Hydroxide 30 ml 08/06/18 13:44 Milk Of Magnesia - PO DAILY PRN CONSTIPATION Melatonin 5 mg 08/06/18 22:00 Melatonin PO HS PRN INSOMNIA Nicotine 14 mg 08/07/18 10:00 08/13/18 09:47 Nicoderm Patch - TD 14 mg DAILY GUILLERMO Administration Nicotine Polacrilex 2 mg 08/06/18 17:59 08/12/18 14:20 Nicorette Gum - BUC 2 mg Q2H PRN Administration NICOTINE REPLACEMENT RX Multivit/Folic Acid/Iron 1 tab 08/07/18 10:00 08/13/18 09:50 Vitamins (Sjr) - PO 1 tab DAILY GUILLERMO Administration Pseudoephedrine/Triprolidine 1 combo 08/06/18 13:44 Actifed - PO TID PRN NASAL CONGESTION Risperidone 3 mg 08/07/18 10:45 08/13/18 09:51 Risperdal - PO 3 mg BID GUILLERMO Administration Thiamine HCl 100 mg 08/06/18 22:00 08/12/18 21:31 Vitamin B1 - PO 100 mg HS GUILLERMO Administration Trazodone HCl 150 mg 08/09/18 22:00 08/12/18 21:31 Desyrel - PO 150 mg HS GUILLERMO Administration Current Side Effect: No Lab tests ordered: Yes Lab tests reviewed: Yes Provider note:: Patient will complete this program on 08/14/18. He has met his treatment goals and will continue to address his issues in going to AA/NA. Told senior medical writer that from his participation in this program, he has learned relapse prevention as a way to maintain abstinence. He responded well to Wellbutrin XL 300 mg po daily. Gabapentin 400 mg po TID, Risperdal 3 mg po BID, Cogentin 0.5 mg po BID and Strattera 50 mg po daily. Scripts for 30 days supply for these medications will be electronically transmitted to [facility] at [address] [place] [address]. He is stable for discharge on 08/14/18 Total face to face time:: 35 Mental Status Exam - Mental Status Exam Alert and Oriented to: Time, Place, Person Cognitive Function: Fair Patient Appearance: Well Groomed Mood: Hopeful, Euthymic Affect: Appropriate Patient Behavior: Cooperative Speech Pattern: Clear Voice Loudness: Normal Thought Process: Intact, Goal Oriented Thought Disorder: Not Present Hallucinations: Denies Suicidal Ideation: Denies Homicidal Ideation: Denies Insight/Judgement: Fair Sleep: Fair Appetite: Good Gait/Station: Normal Psychiatric Treatment Plan - Problem List (1) Alcohol dependence Current Visit: Yes (2) Cocaine dependence Current Visit: Yes (3) Nicotine dependence Current Visit: Yes Qualifiers: Nicotine product type: cigarettes Substance use status: uncomplicated Qualified Code(s): F17.210 - Nicotine dependence, cigarettes, uncomplicated (4) Bipolar disorder Current Visit: Yes Comment: Inferred from the medications on file + patient's self-report.Non compliance with aftercare. (5) ADHD (attention deficit hyperactivity disorder) Current Visit: Yes (6) Substance-induced anxiety disorder Current Visit: Yes (7) Substance-induced sleep disorder Current Visit: Yes Initial treatment plan: Patient will be discharged tomorrow and will be going to AA/NA to address her issues
[2018-08-13] MEDS: NICOTINE POLACRILEX 2 MG GUM BUC PRN (12:39)
--- NOTE | 2018-08-13 13:56 | PN ---
S Progress Note Note: Vital Signs Temperature 97.4 F L 08/13/18 06:46 Pulse Rate 90 08/13/18 06:46 Respiratory Rate 18 08/13/18 06:46 Blood Pressure 113/69 08/13/18 06:46 O2 Sat by Pulse Oximetry (%) Patient medically stable. Patient will complete this program on 08/14/18. Patient to follow up with primary medical provider in 1- 2 weeks.
[2018-08-13] MEDS: traZODone HCL 50 MG TABLET (FP) PO SCH (21:45)
[2018-08-13] MEDS: THIAMINE HCL 100 MG TABLET (FP) PO SCH (21:48)
[2018-08-14] MEDS: hydrOXYzine PAMOATE 50 MG CAPSULE (FP) PO PRN (06:17)
[2018-08-14] MEDS: CYCLOBENZAPRINE HCL 10 MG TABLET (FP) PO PRN (06:17)
[2018-08-14] MEDS: IBUPROFEN 600 MG TABLET (FP) PO PRN (06:17)
[2018-08-14] MEDS: GABAPENTIN 400 MG CAPSULE (FP) PO SCH (06:17)
[2018-08-14 06:54] VITALS: BP 115/76; PULSE 83; TEMP 97.6
[2018-08-14] MEDS: PRENATAL VITAMINS W/ FOLIC ACID TABLET (FP) PO SCH (09:38)
[2018-08-14] MEDS: risperiDONE 3 MG TABLET PO SCH (09:38)
[2018-08-14] MEDS: BENZTROPINE MESYLATE 1 MG TABLET (FP) PO SCH (09:39)
[2018-08-14] MEDS: NICOTINE 14 MG/24 HOURS TOPICAL PATCH TD SCH (09:39)
[2018-08-14] MEDS: ATOMOXETINE HCL 25 MG CAPSULE PO SCH (09:41)
--- NOTE | 2018-08-14 16:22 | PN ---
S Progress Note Note: PT COMPLETED REHAB AND DISCHARGED TODAY. PT IS ALERT O X 3. NAD. PT MET WITH COUNSELING STAFF AND REFERRED TO [facility] OPD. ALSO WILL FOLLOW UP WITH MEDICAL MANAGEMENT AT SAME LOCATION.
== END 2018-08-14 10:10 | disposition home or self-care (01) | DRG 772 ==
LOC: YASAS 12:30 → Y5N 12:33
PROVIDERS: ADMIT Psychiatry & Neurology Psychiatry; ATTEND Psychiatry & Neurology Psychiatry
PROC: HZ42ZZZ Group Counseling for Substance Abuse Treatment, Cognitive-Behavioral (ICD-10-PCS; principal; 2018-08-06)
DX: F10.20 Alcohol dependence, uncomplicated (principal); F12.20 Cannabis dependence, uncomplicated; F13.20 Sedative, hypnotic or anxiolytic dependence, uncomplicated; F17.210 Nicotine dependence, cigarettes, uncomplicated; F31.9 Bipolar disorder, unspecified; F90.9 Attention-deficit hyperactivity disorder, unspecified type; F19.280 Other psychoactive substance dependence with psychoactive substance-induced anxiety disorder; F19.282 Other psychoactive substance dependence with psychoactive substance-induced sleep disorder; J02.9 Acute pharyngitis, unspecified; G47.00 Insomnia, unspecified; D72.829 Elevated white blood cell count, unspecified
CPT/HCPCS: 36415; 85025; J0735

== ENCOUNTER 2019-03-07 12:23 | Inpatient (IN) | payer OTHER ==
[2019-03-07 13:53] VITALS: BMI 30.1
--- NOTE | 2019-03-07 15:04 | HP ---
CIWA Score - Admission Criteria [facility]ASAS Guidelines: Admission for Medically Managed Detox: Requires at least one of the followin. CIWA greater than 12 2. Seizures within the past 24 hours 3. Delirium tremens within the past 24 hours 4. Hallucinations within the past 24 hours 5. Acute intervention needed for co occurring medical disorder 6. Acute intervention needed for co occurring psychiatric disorder 7. Severe withdrawal that cannot be handled at a lower level of care (continued vomiting, continued diarrhea, abnormal vital signs) requiring intravenous medication and/or fluids 8. Admission ROS [facility] - HPI Chief Complaint: i am here for rehab from heroin,xanax and alcohol Allergies/Adverse Reactions: Allergies Allergy/AdvReac Type Severity Reaction Status Date / Time No Known Allergies Allergy Verified 03/07/19 13:40 History of Present Illness: this 34 years old male with heroin,alcohol and xanax dependence,admitted at [facility] from 03/02/19 to 03/07/19 had grug overdose bipolar disorder with manic depression multiple admissions in detox nicotine dependence 1 pack/day,requesting nicotine patch and gum no significant period of sobriety plan for rehab Exam Limitations: No Limitations - Ebola screening Have you traveled outside of the country in the last 21 days: No Have you had contact with anyone from an Ebola affected area: No Do you have a fever: No - Review of Systems Constitutional: No Symptoms Reported EENT: reports: No Symptoms Reported Respiratory: reports: No Symptoms reported Cardiac: reports: No Symptoms Reported GI: reports: No Symptoms Reported : reports: No Symptoms Reported Musculoskeletal: reports: No Symptoms Reported Integumentary: reports: No Symptoms Reported Neuro: reports: No Symptoms reported Endocrine: reports: No Symptoms Reported Hematology: reports: No Symptoms Reported Psychiatric: reports: No Sypmtoms Reported, Judgement Intact, Mood/Affect Appropiate, Orientated x3, other (bipolar disorder,depression) Other Systems: Reviewed and Negative Patient History - Patient Medical History Hx Anemia: No Hx Asthma: No Hx Chronic Obstructive Pulmonary Disease (COPD): No Hx Cancer: No Hx Cardiac Disorders: No Hx Hypertension: Yes (No meds.) Hx Hypercholesterolemia: No Hx Pacemaker: No HX Cerebrovascular Accident: No Hx Seizures: No Hx Dementia: No Hx Diabetes: No Hx Gastrointestinal Disorders: No Hx Liver Disease: No Hx Genitourinary Disorders: No Hx Sexually Transmitted Disorders: No Hx Renal Disease (ESRD): No Hx Thyroid Disease: No Hx Human Immunodeficiency Virus (HIV): No Hx Hepatitis C: No Hx Depression: Yes Hx Suicide Attempt: No Hx Bipolar Disorder: Yes Hx Schizophrenia: No Other Medical History: no suicidal,no homicidal - Patient Surgical History Past Surgical History: No Hx Neurologic Surgery: No Hx Cataract Extraction: No Hx Cardiac Surgery: No Hx Lung Surgery: No Hx Breast Surgery: No Hx Breast Biopsy: No Hx Abdominal Surgery: No Hx Appendectomy: No Hx Cholecystectomy: No Hx Genitourinary Surgery: No Hx Section: No Hx Orthopedic Surgery: No Anesthesia Reaction: No - PPD History Previous Implant?: Yes Documented Results: Negative w/proof Implanted On Prior R Admission?: Yes Date: 08/04/18 Results: 0mm PPD to be Administered?: No - Smoking Cessation Smoking history: Current every day smoker Have you smoked in the past 12 months: Yes Aproximately how many cigarettes per day: 20 Hx Chewing Tobacco Use: No Initiated information on smoking cessation: Yes 'Breaking Loose' booklet given: 03/07/19 - Substance & Tx. History Hx Alcohol Use: Yes Hx Substance Use: Yes Substance Use Type: Alcohol, Heroin, Tranquilizers Hx Substance Use Treatment: Yes (03/02/19 to 03/07/19 [facility] ) - Substances abused Heroin Substance route: Inhalation Frequency: Daily Amount used: 5 bags Age of first use: 28 Date of last use: 03/02/19 Alprazolam (Xanax) Substance route: Oral Frequency: Daily Amount used: 8mg Age of first use: 25 Date of last use: 03/02/19 Benzodiazepine (Klonopin) Substance route: Oral Frequency: Daily Amount used: 2mg Age of first use: 23 Date of last use: 03/07/19 Other Other (specify): Ativan Substance route: Oral Frequency: Daily Amount used: 6mg Age of first use: 29 Date of last use: 03/07/19 Family Disease History - Family Disease History Family History: Denies Admission Physical Exam BHS - Vital Signs Vital Signs: Vital Signs - 24 hr 03/07/19 03/07/19 13:46 14:07 Temperature 98 F 98 F Pulse Rate 101 H 101 H Respiratory 18 18 Rate Blood Pressure 140/93 140/93 - Physical General Appearance: Yes: Within Normal Limits HEENTM: Yes: Normal ENT Inspection, MAURI, Pharynx Normal Respiratory: Yes: Lungs Clear, Normal Breath Sounds, No Respiratory Distress Neck: Yes: Within Normal Limits, Supple, Trachea in good position Breast: Yes: Within Normal Limits Cardiology: Yes: Within Normal Limits, Regular Rhythm, Regular Rate, S1, S2 Abdominal: Yes: Within Normal Limits, Normal Bowel Sounds, Non Tender, Soft Genitourinary: Yes: Within Normal Limits Back: Yes: Within Normal Limits Musculoskeletal: Yes: Within Normal Limits Extremities: Yes: Within Normal Limits Neurological: Yes: manager editorial II-XII NML intact, Alert, Motor Strength 5/5 Integumentary: Yes: Within Normal Limits Lymphatic: Yes: Within Normal Limits - Diagnostic (1) Heroin dependence Status: Chronic (2) Alcohol dependence Status: Acute (3) Cocaine dependence Status: Chronic (4) Sedative dependence Status: Acute (5) Bipolar disorder Status: Acute Cleared for Admission BHS - Detox or Rehab Claeared for Rehab Admission: Yes Breathalyzer - Breathalyzer Breathalyzer: 0 Urine Drug Screen - Test Device Lot number: [id number] Expiration date: 10/04/20 - Control Is test valid?: Yes - Results Drug screen NEGATIVE: No Urine drug screen results: BZO-Benzodiazepines Inpatient Rehab Admission - Rehab Decision to Admit Inpatient rehab admission?: Yes - Initial Determination Are CD services needed?: Yes Free of communicable disease: Yes Not in need of hospitalization: Yes - Rehab Admission Criteria Previous failed treatment: Yes Poor recovery environment: Yes Comorbidities: Yes Lacks judgement: No Patient is meeting Inpatient Rehab admission criteria:: Yes
[2019-03-07] MEDS ORDERED: P-EPHED 60MG/TRIPROLIDI 2.5MG TABLET PO PRN (15:27)
[2019-03-07] MEDS ORDERED: MENTHOL/PHENOL 1 EACH UD MM PRN (15:27)
[2019-03-07] MEDS ORDERED: MAGNESIUM HYDROX 2400MG/30ML ORAL SUSPENSION 30 ML CUP PO PRN (15:27)
[2019-03-07] MEDS ORDERED: guaiFENesin 200 MG/10 ML 10 ML UNIT-DOSE CUPS PO PRN (15:27)
[2019-03-07] MEDS ORDERED: MAG HYDROX/AL HYDROX/SIMETH 30 ML UNIT-DOSE CUP PO PRN (15:27)
[2019-03-07] MEDS ORDERED: MAGNESIUM CITRATE 300 ML BOTTLE PO PRN (15:27)
[2019-03-07] MEDS ORDERED: LOPERAMIDE HCL 2 MG CAPSULE PO PRN (15:27)
[2019-03-07] MEDS: NICOTINE 21 MG/24 HOURS TOPICAL PATCH TD SCH (16:50)
[2019-03-07] MEDS: hydrOXYzine PAMOATE 50 MG CAPSULE (FP) PO PRN (16:50)
[2019-03-07] MEDS: NICOTINE POLACRILEX 2 MG GUM BC PRN ×2 (16:51→21:13)
[2019-03-07] MEDS: ACETAMINOPHEN 325 MG TABLET (FP) PO PRN (18:24)
[2019-03-07] MEDS: THIAMINE HCL 100 MG TABLET (FP) PO SCH (21:12)
[2019-03-07] MEDS: MELATONIN 5 MG TABLETS PO PRN (21:13)
[2019-03-07] MEDS ORDERED: traZODone HCL 50 MG TABLET (FP) PO ONE (21:16)
[2019-03-08] MEDS: hydrOXYzine PAMOATE 50 MG CAPSULE (FP) PO PRN ×3 (04:22→14:53)
[2019-03-08] MEDS: NICOTINE POLACRILEX 2 MG GUM BC PRN ×6 (06:13→19:53)
[2019-03-08] MEDS: NICOTINE 21 MG/24 HOURS TOPICAL PATCH TD SCH (09:37)
[2019-03-08] MEDS: PRENATAL VITAMINS W/ FOLIC ACID TABLET (FP) PO SCH (09:38)
[2019-03-08 10:28] LABS: HEMATOCRIT 46.3 % (35.4-49); MCH 29.1 pg (25.7-33.7); MCHC 32.3 g/dl (32.0-35.9); MEAN CELL VOLUME 89.9 fl (80-96); MEAN PLT VOLUME 6.9 fl (7.5-11.1); PLATELET COUNT 446 K/MM3 (134-434); RBC 5.15 M/mm3 (4.00-5.60); RDW 14.5 % (11.9-15.9); WHITE BLOOD COUNT 12.8 K/mm3 (4.0-10.0)
[2019-03-08] MEDS: ACETAMINOPHEN 325 MG TABLET (FP) PO PRN (11:35)
[2019-03-08 12:02] LABS: ALK PHOS 63 U/L (45-117); ANION GAP 11 MMOL/L (8-16); BILIRUBIN,TOTAL 0.4 mg/dL (0.2-1); BLOOD UREA NITROGEN 17 mg/dL (7-18); CALCIUM 9.3 mg/dL (8.5-10.1); CHLORIDE 104 mmol/L (98-107); CO2 24 mmol/L (21-32); CREATININE 0.8 mg/dL (0.55-1.3); GLUCOSE,RANDOM 109 mg/dL (74-106); POTASSIUM 4.2 mmol/L (3.5-5.1); SGOT/AST 16 U/L (15-37); SGPT/ALT 55 U/L (13-61); SODIUM 139 mmol/L (136-145); TOT PROT 7.5 g/dl (6.4-8.2)
--- NOTE | 2019-03-08 13:22 | CONSULT ---
[facility] Psychiatric Consult - Data Date of interview: 03/08/19 Admission source: [facility] Identifying data: Readmission to [facility] for this 34 y/o [place] male from [place] ancestry, discharged from the psychiatric inpatient service ([facility]) and referred for detoxification treatment (alcohol, cocaine, cannabis, opioid, xanax). Direct admssion to [address] Patient is single without dependents, homeless ([place] resident), unemployed and reportedly employed on a part-time basis ([employer]). Substance Abuse History: Confirmed by the patient in this session. Details in current [facility] report as follows : Smoking history: Current every day smoker. Have you smoked in the past 12 months: Yes. Aproximately how many cigarettes per day: 20. Hx Chewing Tobacco Use: No. Initiated information on smoking cessation: Yes. 'Breaking Loose' booklet given: 03/07/19. - Substance & Tx. History. Hx Alcohol Use: Yes. Hx Substance Use: Yes. Substance Use Type: Alcohol, Heroin, Tranquilizers. Hx Substance Use Treatment: Yes (03/02/19 to [facility] ). - Substances abused. Heroin. Substance route : Inhalation. Frequency: Daily. Amount used: 5 bags. Age of first use: 28. Date of last use: 03/02/19. Alprazolam (Xanax). Substance route: Oral. Frequency: Daily. Amount used: 8mg. Age of first use: 25. Date of last use: 03/02/19. Benzodiazepine (Klonopin). Substance route: Oral. Frequency: Daily. Amount used: 2mg. Age of first use: 23. Date of last use: 03/07/19. * * Other. Other (specify): Ativan. Substance route: Oral. Frequency: Daily. Amount used: 6mg. Age of first use: 29. Date of last use: 03/07/19 Medical History: Patient endorses good general health. Psychiatric History: First psychiatric breakdown had occurred at age 16 ( admission to [facility]). Diagnosed, at the time, with MDD (treated with paroxetine). At age 21, the patient received the additional diagnosis of ADHD and placed on atomoxetine.Patient is known to multiple psychiatric institutions ([facility], [facility], [facility]). Diagnosis was revised to Bipolar Disorder in 2016. Mr Bernardo presents with a history of non-adherence to OPD care and chronic suicidal tendencies. Has been on various psychotropic formulations, which include depot medications. Patient is discharged from [facility] (03/07/19) on a regimen of maintena 400 mg IM monthly ( dispensed on 02/07/19) + gabapentin 300 mg/tid + remeron 30 mg/hs. Recent suicide attempt via ingestion of a massive dose of gabapentin and mirtazapine (reason for his admission to [facility]). Physical/Sexual Abuse/Trauma History: Patient denies. Additional Comment: Urine drug screen results: BZO-Benzodiazepines.Noted. Mental Status Exam - Mental Status Exam Alert and Oriented to: Time, Place, Person Cognitive Function: Good Patient Appearance: Well Groomed (short stature, overweight) Mood: Nervous, Anxious Affect: Mood Congruent, Labile Patient Behavior: Cooperative (overfriendly) Speech Pattern: Clear, Excessive Voice Loudness: Normal Thought Process: Goal Oriented Thought Disorder: Present, Bizarre Hallucinations: Denies Suicidal Ideation: Denies Homicidal Ideation: Denies Insight/Judgement: Poor Sleep: Poorly, Difficulty falling asleep Appetite: Good Muscle strength/Tone: Normal Gait/Station: Normal Psychiatric Findings - Problem List ([place] 1, 2,3) (1) Alcohol dependence Current Visit: Yes Status: Chronic (2) Heroin dependence Current Visit: Yes Status: Chronic (3) Sedative hypnotic or anxiolytic dependence Current Visit: Yes Status: Chronic (4) Nicotine dependence Current Visit: Yes Status: Chronic Qualifiers: Nicotine product type: cigarettes Substance use status: uncomplicated Qualified Code(s): F17.210 - Nicotine dependence, cigarettes, uncomplicated (5) Insomnia Current Visit: Yes Status: Chronic (6) Substance induced mood disorder Current Visit: Yes Status: Chronic (7) ADHD (attention deficit hyperactivity disorder) Current Visit: Yes Status: Chronic (8) Bipolar disorder Current Visit: Yes Status: Chronic - Initial Treatment Plan Initial Treatment Plan: Psychoeducation. Support. Groups. AA/NA meetings. Motivational counseling. Resume gabapentin 300 mg po tid + mirtazapine [address] po hs[address] [facility] for confirmation of the date of last injection of Maintena. Side effects/benefits of medications are discussed with the patient. Mr Bernardo gave his verbal consent to MD. Solis.
[2019-03-08] MEDS: IBUPROFEN 400 MG TABLET (FP) PO PRN (14:29)
[2019-03-08] MEDS ORDERED: GABAPENTIN 300 MG CAPSULE (FP) PO ONE (14:55)
[2019-03-08] MEDS: THIAMINE HCL 100 MG TABLET (FP) PO SCH (21:16)
[2019-03-08] MEDS: GABAPENTIN 300 MG CAPSULE (FP) PO SCH (21:17)
[2019-03-08] MEDS: MIRTAZAPINE 15 MG TABLET (FP) PO SCH (21:17)
[2019-03-08] MEDS: MELATONIN 5 MG TABLETS PO PRN (23:57)
[2019-03-09] MEDS: hydrOXYzine PAMOATE 50 MG CAPSULE (FP) PO PRN ×4 (00:25→15:40)
[2019-03-09] MEDS: GABAPENTIN 300 MG CAPSULE (FP) PO SCH ×3 (06:07→21:38)
[2019-03-09] MEDS: NICOTINE POLACRILEX 2 MG GUM BC PRN ×7 (06:07→21:39)
[2019-03-09] MEDS: PRENATAL VITAMINS W/ FOLIC ACID TABLET (FP) PO SCH (09:52)
[2019-03-09] MEDS: NICOTINE 21 MG/24 HOURS TOPICAL PATCH TD SCH (09:52)
[2019-03-09] MEDS: ACETAMINOPHEN 325 MG TABLET (FP) PO PRN ×2 (10:59→16:42)
[2019-03-09] MEDS: IBUPROFEN 400 MG TABLET (FP) PO PRN ×2 (13:27→21:38)
[2019-03-09] MEDS: MIRTAZAPINE 15 MG TABLET (FP) PO SCH (21:38)
[2019-03-09] MEDS: THIAMINE HCL 100 MG TABLET (FP) PO SCH (21:38)
[2019-03-09] MEDS: MELATONIN 5 MG TABLETS PO PRN (22:54)
[2019-03-09] MEDS ORDERED: QUEtiapine FUMARATE 50 MG TABLET PO ONE (23:53)
[2019-03-10] MEDS: ACETAMINOPHEN 325 MG TABLET (FP) PO PRN (00:03)
[2019-03-10] MEDS: hydrOXYzine PAMOATE 50 MG CAPSULE (FP) PO PRN (00:03)
--- NOTE | 2019-03-10 00:41 | PN ---
[facility] Progress Note Note: INFORMED CLIENT WANTS TO SIGN OUT AMA. SPOKE WITH CLIENT C/O INSOMNIA. OFFERED SEROQUEL AND RECONSULT BY [facility] IN AM. CLIENT AGREES TO PLAN SEROQUEL 50 MG X 1 DOSE PSYCH CONSULT CLIENT HAS RECINDED AND WANTS TO SIGN OUT AMA; DID NO RECIEVE SEROQUEL VSS/A/0X3 NAD Vital Signs Temperature 97.3 F L 03/10/19 00:52 Pulse Rate 83 03/10/19 00:52 Respiratory Rate 18 03/10/19 00:52 Blood Pressure 142/86 03/10/19 00:52 O2 Sat by Pulse Oximetry (%) SIGNED OUT AMA DESPITE ENCOURAGEMENT TO NOT TO ABRUPT TXMENT. RISK FOR OVERDOSE , SEIZURE , DISCUSSED. CLIENT ACCEPTS RISKS.
[2019-03-10 00:53] VITALS: BP 142/86; PULSE 83; TEMP 97.3
== END 2019-03-10 00:45 | disposition left against medical advice (07) | DRG 770 ==
LOC: YASAS 12:23 → Y3W 15:53
PROVIDERS: ADMIT Neuromusculoskeletal Medicine & OMM; ATTEND Neuromusculoskeletal Medicine & OMM
PROC: HZ42ZZZ Group Counseling for Substance Abuse Treatment, Cognitive-Behavioral (ICD-10-PCS; principal; 2019-03-07)
DX: F11.20 Opioid dependence, uncomplicated (principal); F10.20 Alcohol dependence, uncomplicated; F13.20 Sedative, hypnotic or anxiolytic dependence, uncomplicated; F17.210 Nicotine dependence, cigarettes, uncomplicated; F19.24 Other psychoactive substance dependence with psychoactive substance-induced mood disorder; F31.9 Bipolar disorder, unspecified; F90.9 Attention-deficit hyperactivity disorder, unspecified type; G47.00 Insomnia, unspecified
CPT/HCPCS: 36415; 80053; 85027; 86593; 87389

== ENCOUNTER 2019-07-15 13:37 | Inpatient (IN) | payer OTHER ==
[2019-07-15 17:25] VITALS: BMI 29.2
--- NOTE | 2019-07-15 18:58 | HP ---
COWS - Scale Resting Pulse: 1= [place] 81-100 Sweatin= Chills/Flushing Restless Observation: 1= Difficult to Sit Still Pupil Size: 1= Pupils >than Normal Bone or Joint Aches: 1= Mild Discomfort Runny Nose/ Eye Tearin= Nasal Congestion GI Upset > 30mins: 1= Stomach Cramp Tremor Observation: 1= Tremor [place], Not Seen Yawning Observation: 1= 1-2x During Session Anxiety or Irritability: 1=Feels Anxious/Irritable Goose Flesh Skin: 0=Smooth Skin COWS Score: 10 CIWA Score Nausea/Vomitin-Mild Nausea/No Vomiting Muscle Tremors: 3 Anxiety: 3 Agitation: 3 Paroxysmal Sweats: No Perspiration Orientation: 0-Oriented Tacttile Disturbances: 0-None Auditory Disturbances: 0-None Visual Disturbances: 0-None Headache: 1-Very Mild CIWA-Ar Total Score: 11 - Admission Criteria OASAS Guidelines: Admission for Medically Managed Detox: Requires at least one of the followin. CIWA greater than 12 2. Seizures within the past 24 hours 3. Delirium tremens within the past 24 hours 4. Hallucinations within the past 24 hours 5. Acute intervention needed for co occurring medical disorder 6. Acute intervention needed for co occurring psychiatric disorder 7. Severe withdrawal that cannot be handled at a lower level of care (continued vomiting, continued diarrhea, abnormal vital signs) requiring intravenous medication and/or fluids 8. Patient presents the following: Seizures, delirium tremens or hallucinations in the past 12 hours Admission Criteria Met: Admission criteria met Admission ROS [facility] Chief Complaint: benzo and alcohol detox Allergies/Adverse Reactions: Allergies Allergy/AdvReac Type Severity Reaction Status Date / Time No Known Allergies Allergy Verified 03/07/19 13:40 History of Present Illness: 34 yo with polysubstance use. Started using drugs at age 16. No medical problems. On no medications. Pt was taken to ER after he had a seizure-referred here for detox. Pt is homeless. Lives in [facility] in shelters. Family is in [place]. He would like to go to rehab and go to live with his family in [place]. Spends $200/day on drugs Xanax- 2-4mg/day, Klonopin 8mg Crack cocaine- $50-100 Heroin- 5-8 bags/IV MJ- 1 joint/day DUR- suboxone 06/2019- wants to take methadone MAT instead Admitted for benzo and heroin detox Exam Limitations: No Limitations - Ebola screening Have you traveled outside of the country in the last 21 days: No Have you had contact with anyone from an Ebola affected area: No - Review of Systems Constitutional: No Symptoms Reported EENT: reports: No Symptoms Reported Respiratory: reports: No Symptoms reported Cardiac: reports: No Symptoms Reported GI: reports: No Symptoms Reported : reports: No Symptoms Reported Musculoskeletal: reports: No Symptoms Reported Integumentary: reports: No Symptoms Reported Neuro: reports: No Symptoms reported Endocrine: reports: No Symptoms Reported Hematology: reports: No Symptoms Reported Psychiatric: reports: No Sypmtoms Reported Patient History - Patient Medical History Hx Anemia: No Hx Asthma: No Hx Chronic Obstructive Pulmonary Disease (COPD): No Hx Cancer: No Hx Cardiac Disorders: No Hx Hypertension: Yes (No meds.) Hx Hypercholesterolemia: No Hx Pacemaker: No HX Cerebrovascular Accident: No Hx Seizures: No Hx Dementia: No Hx Diabetes: No Hx Gastrointestinal Disorders: No Hx Liver Disease: No Hx Genitourinary Disorders: No Hx Sexually Transmitted Disorders: No Hx Renal Disease (ESRD): No Hx Thyroid Disease: No Hx Human Immunodeficiency Virus (HIV): No Hx Hepatitis C: No Hx Depression: Yes Hx Suicide Attempt: No Hx Bipolar Disorder: Yes Hx Schizophrenia: No - Patient Surgical History Past Surgical History: No Hx Neurologic Surgery: No Hx Cataract Extraction: No Hx Cardiac Surgery: No Hx Lung Surgery: No Hx Breast Surgery: No Hx Breast Biopsy: No Hx Abdominal Surgery: No Hx Appendectomy: No Hx Cholecystectomy: No Hx Genitourinary Surgery: No Hx Section: No Hx Orthopedic Surgery: No Anesthesia Reaction: No - PPD History Date: 08/04/18 Results: 0mm - Smoking Cessation Smoking history: Current every day smoker Have you smoked in the past 12 months: Yes Aproximately how many cigarettes per day: 20 Hx Chewing Tobacco Use: No Initiated information on smoking cessation: Yes 'Breaking Loose' booklet given: 07/15/19 - Substance & Tx. History Substance Use Type: Cocaine, Heroin, Marijuana Hx Substance Use Treatment: Yes - Substances abused Heroin Substance route: Inhalation Frequency: Daily Amount used: 5 to 8 bags Age of first use: 28 Date of last use: 07/14/19 Alprazolam (Xanax) Substance route: Oral Frequency: Daily Amount used: 2mg Age of first use: 25 Date of last use: 07/15/19 Benzodiazepine (Klonopin) Substance route: Oral Frequency: Daily Amount used: 8mg Age of first use: 23 Date of last use: 07/15/19 Other Other (specify): Ativan Substance route: Oral Frequency: Daily Amount used: 4 mg Age of first use: 29 Date of last use: 07/15/19 Alcohol Substance route: Oral Frequency: Daily Amount used: 2 pints vodka Age of first use: 16 Date of last use: 07/15/19 Family Disease History - Family Disease History Family Disease History: Other: Father (alcoholism) Admission Physical Exam S - Vital Signs Vital Signs: Vital Signs - 24 hr 07/15/19 17:16 Temperature 96.8 F L Pulse Rate 85 Respiratory 19 Rate Blood Pressure 137/88 - Physical General Appearance: Yes: Disheveled, Thin HEENTM: Yes: Within Normal Limits Respiratory: Yes: Within Normal Limits Neck: Yes: Within Normal Limits Cardiology: Yes: Within Normal Limits Abdominal: Yes: Within Normal Limits Genitourinary: Yes: Within Normal Limits Back: Yes: Within Normal Limits Musculoskeletal: Yes: Within Normal Limits Extremities: Yes: Within Normal Limits Neurological: Yes: Within Normal Limits Integumentary: Yes: Within Normal Limits Lymphatic: Yes: Within Normal Limits - Diagnostic (1) Generalized body aches Current Visit: No Status: Acute (2) Sedative dependence Current Visit: No Status: Acute (3) Nicotine dependence Current Visit: No Status: Chronic Qualifiers: Nicotine product type: cigarettes Substance use status: uncomplicated Qualified Code(s): F17.210 - Nicotine dependence, cigarettes, uncomplicated (4) Sedative hypnotic or anxiolytic dependence Current Visit: No Status: Chronic Breathalyzer - Breathalyzer Breathalyzer: 0 Urine Drug Screen - Test Device Lot number: [id number] Expiration date: 04/04/21 - Control Is test valid?: Yes - Results Drug screen NEGATIVE: No Urine drug screen results: THC-Marijuana, JOSE A-Cocaine, MOP-Opiates, BZO- Benzodiazepines Inpatient Rehab Admission - Rehab Decision to Admit Inpatient rehab admission?: No
[2019-07-15] MEDS ORDERED: ONDANSETRON *ODT* 4 MG TABLET SL PRN (19:13)
[2019-07-15] MEDS ORDERED: BISMUTH SUBSALICYLATE 524 MG/30 ML UD PO PRN (19:13)
[2019-07-15] MEDS ORDERED: MELATONIN 5 MG TABLETS PO PRN (19:13)
[2019-07-15] MEDS ORDERED: MAG HYDROX/AL HYDROX/SIMETH 30 ML UNIT-DOSE CUP PO PRN (19:13)
[2019-07-15] MEDS ORDERED: MENTHOL/PHENOL 1 EACH UD MM PRN (19:13)
[2019-07-15] MEDS ORDERED: METHADONE HCL 10 MG TABLET (FOR DETOX USE ONLY) PO ONE ×2 (19:13→19:17)
[2019-07-15] MEDS ORDERED: MAGNESIUM CITRATE 300 ML BOTTLE PO PRN (19:13)
[2019-07-15] MEDS ORDERED: diazePAM 5 MG TABLET PO ONE (19:13)
[2019-07-15] MEDS ORDERED: cloNIDine HCL 0.1 MG TABLET PO PRN ×2 (19:13→19:17)
[2019-07-15] MEDS ORDERED: clonazePAM 0.5 MG TABLET PO PRN (19:13)
[2019-07-15] MEDS ORDERED: ACETAMINOPHEN 325 MG TABLET (FP) PO PRN ×2 (19:13)
[2019-07-15] MEDS ORDERED: IBUPROFEN 400 MG TABLET (FP) PO PRN (19:13)
[2019-07-15] MEDS: NICOTINE POLACRILEX 4 MG GUM BUC PRN (20:30)
[2019-07-15] MEDS: diazePAM 5 MG TABLET PO SCH (22:42)
[2019-07-15] MEDS: THIAMINE HCL 100 MG TABLET (FP) PO SCH (22:42)
[2019-07-15] MEDS: METHOCARBAMOL 500 MG TABLET PO PRN (22:42)
[2019-07-16] MEDS: traZODone HCL 50 MG TABLET (FP) PO PRN (02:40)
[2019-07-16] MEDS: NICOTINE POLACRILEX 4 MG GUM BUC PRN ×6 (02:41→22:11)
[2019-07-16] MEDS: MAGNESIUM HYDROX 2400MG/30ML ORAL SUSPENSION 30 ML CUP PO PRN (02:47)
[2019-07-16] MEDS: diazePAM 5 MG TABLET PO SCH ×3 (05:19→23:47)
[2019-07-16] MEDS: METHOCARBAMOL 500 MG TABLET PO PRN (05:22)
[2019-07-16] MEDS: CYCLOBENZAPRINE HCL 10 MG TABLET (FP) PO PRN ×2 (09:25→22:13)
[2019-07-16] MEDS ORDERED: METHADONE HCL 10 MG TABLET (FOR DETOX USE ONLY) ONE (09:51)
[2019-07-16] MEDS ORDERED: METHADONE HCL 5 MG TABLET (FOR DETOX USE ONLY) ONE (09:52)
[2019-07-16] MEDS ORDERED: METHADONE (DETOX) 20 MG, METHADONE (DETOX) 5 MG PO ONE (10:00)
[2019-07-16] MEDS ORDERED: METHADONE HCL 5 MG TABLET (FOR DETOX USE ONLY) PO ONE (10:00)
[2019-07-16] MEDS: PRENATAL VITAMINS W/ FOLIC ACID TABLET (FP) PO SCH (10:15)
[2019-07-16] MEDS: diazePAM 5 MG TABLET PO PRN ×2 (10:17→18:30)
--- NOTE | 2019-07-16 10:21 | PN ---
S CIWA - CIWA Score Nausea/Vomitin Muscle Tremors: 2 Anxiety: 3 Agitation: 3 Paroxysmal Sweats: 1-Minimal Palms Moist Orientation: 0-Oriented Tacttile Disturbances: 1-Very Mild Itch/Numbness Auditory Disturbances: 0-None Visual Disturbances: 0-None Headache: 2-Mild CIWA-Ar Total Score: 14 BHS COWS - Scale Resting Pulse: 2= [place] 101-120 Sweatin= No chills or Flushing Restless Observation: 1= Difficult to Sit Still Pupil Size: 1= Pupils >than Normal Bone or Joint Aches: 1= Mild Discomfort Runny Nose/ Eye Tearin= Nasal Congestion GI Upset > 30mins: 1= Stomach Cramp Tremor Observation of Outstretched Hands: 1= Tremor [place], Not Seen Yawning Observation: 1= 1-2x During Session Anxiety or Irritability: 2=Irritable/Anxious Goose Flesh Skin: 0=Smooth Skin COWS Score: 11 S Progress Note (SOAP) Subjective: alert,irritable,anxious,interrupted sleep,tremor,pain in the body and back Objective: 07/16/19 10:20 Vital Signs Temperature 98.7 F 07/16/19 09:34 Pulse Rate 101 H 07/16/19 09:34 Respiratory Rate 18 07/16/19 09:34 Blood Pressure 131/93 07/16/19 09:34 O2 Sat by Pulse Oximetry (%) labs pending Assessment: 07/16/19 10:20 withdrawal symptom Plan: continue detox methadone and valium regimen
[2019-07-16 12:22] LABS: HEMOGLOBIN 11.9 GM/dL (11.7-16.9); MCH 28.6 pg (25.7-33.7); MCHC 32.3 g/dl (32.0-35.9); MEAN CELL VOLUME 88.5 fl (80-96); MEAN PLT VOLUME 7.3 fl (7.5-11.1); PLATELET COUNT 318 K/MM3 (134-434); RBC 4.18 M/mm3 (4.00-5.60); RDW 17.3 % (11.9-15.9); WHITE BLOOD COUNT 10.9 K/mm3 (4.0-10.0)
[2019-07-16 12:45] LABS: BILIRUBIN,TOTAL 0.3 mg/dL (0.2-1); BLOOD UREA NITROGEN 14.3 mg/dL (7-18); CALCIUM 8.6 mg/dL (8.5-10.1); CREATININE 0.7 mg/dL (0.55-1.3); TOT PROT 5.3 g/dl (6.4-8.2)
--- NOTE | 2019-07-16 14:44 | CONSULT ---
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 Refer to addiction counselor's summary for further information Medical History: Unremarkable. Smokes cigarettes 1 ppd Psychiatric History: Patient is well known to this facility from previous admissions. Historical narrative remains consistent. He reports that his first psychiatric breakdown had occurred at age 16 when he was admitted to to [facility]). He said that he was diagnosed, at the time, with MDD and started on paroxetine. At age 21, the patient received the additional diagnosis of ADHD and placed on atomoxetine. Patient is known to have multiple previous psychiatric admissions to various institutions including to [facility], [facility], [facility], [facility] and most recently in March 2019 to [facility]( formerly [facility]). He was discharged on Gabapentin 300 mg/tid, Remeron 15 mg.hs and he was administered Abilify Maintena Injection while there on 03/07/19. Reports that his last psychiatric treatment was at [facility] where he was in residential treatment for 2- 3 months. Reports that he was discharged from [facility] 1.5 month ago on Gabapentin 600 mg/tid, Lamictal 100 mg/bid, Prozac 40 mg/day [id number] mg/day and Rexulti(dosage unknown)Reportedly he told Dr Jordan on 03/08/19 while in detox in this facility that his diagnosis was revised from MDD to Bipolar Disorder in 2016. Patient has a history of non-adherence to OPD care. At present, denies experiencing psychotic, manic or depressive symptoms, S/H ideations. However, reports feeling anxious and sleeping poorly Physical/Sexual Abuse/Trauma History: Denies history of emotional, physical and sexual abuse as well as DV relationship. No service Additional Comment: No criminal history Mental Status Exam - Mental Status Exam Alert and Oriented to: Time, Place, Person Cognitive Function: Fair Patient Appearance: Well Groomed Mood: Anxious Affect: Appropriate Patient Behavior: Cooperative Speech Pattern: Clear Voice Loudness: Normal Thought Process: Intact, Goal Oriented Thought Disorder: Not Present Hallucinations: Denies Suicidal Ideation: Denies Homicidal Ideation: Denies Insight/Judgement: Poor Sleep: Poorly Appetite: Good Muscle strength/Tone: Normal Gait/Station: Normal Psychiatric Findings - Problem List (Speer 1, 2,3) (1) ADHD (attention deficit hyperactivity disorder) Current Visit: No Status: Chronic (2) Bipolar disorder Current Visit: No Status: Chronic (3) Substance-induced anxiety disorder Current Visit: Yes Status: Acute (4) Substance-induced sleep disorder Current Visit: Yes Status: Acute (5) Alcohol dependence with withdrawal, uncomplicated Current Visit: No Status: Acute (6) Opioid dependence, uncomplicated Current Visit: Yes Status: Acute (7) Cocaine dependence Current Visit: No Status: Acute (8) Sedative, hypnotic or anxiolytic use disorder, mild, abuse Current Visit: No Status: Acute (9) Nicotine dependence Current Visit: No Status: Chronic Qualifiers: Nicotine product type: cigarettes Substance use status: uncomplicated Qualified Code(s): F17.210 - Nicotine dependence, cigarettes, uncomplicated - Initial Treatment Plan Initial Treatment Plan: 1) Resume Gabapentin 600 mg po TID, Prozac 40 mg po daily and Starttera 40 mg po daily as requested by patient. 2) Start Remeron 30 mg po HS. 3) Continue inpatient detoxification
[2019-07-16] MEDS: GABAPENTIN 300 MG CAPSULE (FP) PO SCH ×2 (15:50→22:09)
[2019-07-16] MEDS: FLUoxetine HCL 20 MG CAPSULE (FP) PO SCH (15:50)
[2019-07-16] MEDS: ATOMOXETINE HCL 40 MG CAPSULE PO SCH (17:31)
[2019-07-16] MEDS: THIAMINE HCL 100 MG TABLET (FP) PO SCH (22:08)
[2019-07-16] MEDS: MIRTAZAPINE 30 MG TABLET (FP) PO SCH (22:09)
[2019-07-17] MEDS: diazePAM 5 MG TABLET PO PRN ×3 (01:42→20:26)
[2019-07-17] MEDS: GABAPENTIN 300 MG CAPSULE (FP) PO SCH ×3 (05:46→21:39)
[2019-07-17] MEDS: diazePAM 5 MG TABLET PO SCH ×2 (05:46→17:43)
[2019-07-17] MEDS: NICOTINE POLACRILEX 4 MG GUM BUC PRN ×4 (05:47→21:53)
[2019-07-17] MEDS: PRENATAL VITAMINS W/ FOLIC ACID TABLET (FP) PO SCH (09:10)
[2019-07-17] MEDS: FLUoxetine HCL 20 MG CAPSULE (FP) PO SCH (09:11)
[2019-07-17] MEDS: ATOMOXETINE HCL 40 MG CAPSULE PO SCH (09:11)
[2019-07-17] MEDS: CYCLOBENZAPRINE HCL 10 MG TABLET (FP) PO PRN (09:14)
[2019-07-17] MEDS ORDERED: METHADONE HCL 10 MG TABLET (FOR DETOX USE ONLY) PO ONE ×2 (10:00)
--- NOTE | 2019-07-17 12:07 | PN ---
S CIWA - CIWA Score Nausea/Vomitin Muscle Tremors: 2 Anxiety: 2 Agitation: 2 Paroxysmal Sweats: No Perspiration Orientation: 0-Oriented Tacttile Disturbances: 0-None Auditory Disturbances: 0-None Visual Disturbances: 0-None Headache: 2-Mild CIWA-Ar Total Score: 10 BHS COWS - Scale Resting Pulse: 1= [place] 81-100 Sweatin= No chills or Flushing Restless Observation: 1= Difficult to Sit Still Pupil Size: 1= Pupils >than Normal Bone or Joint Aches: 1= Mild Discomfort Runny Nose/ Eye Tearin= Nasal Congestion GI Upset > 30mins: 1= Stomach Cramp Tremor Observation of Outstretched Hands: 1= Tremor [place], Not Seen Yawning Observation: 1= 1-2x During Session Anxiety or Irritability: 2=Irritable/Anxious Goose Flesh Skin: 0=Smooth Skin COWS Score: 10 S Progress Note (SOAP) Subjective: alert,irritable,anxious,interrupted sleep,tremor,pain in the body and back Objective: 07/17/19 12:06 Vital Signs Temperature 97.0 F L 07/17/19 09:25 Pulse Rate 98 H 07/17/19 09:25 Respiratory Rate 18 07/17/19 09:25 Blood Pressure 140/96 07/17/19 09:25 O2 Sat by Pulse Oximetry (%) Laboratory Last Values WBC 10.9 K/mm3 (4.0-10.0) H 07/16/19 09:00 RBC 4.18 M/mm3 (4.00-5.60) 07/16/19 09:00 Hgb 11.9 GM/dL (11.7-16.9) 07/16/19 09:00 Hct 37.0 % (35.4-49) D 07/16/19 09:00 MCV 88.5 fl (80-96) 07/16/19 09:00 MCH 28.6 pg (25.7-33.7) 07/16/19 09:00 MCHC 32.3 g/dl (32.0-35.9) 07/16/19 09:00 RDW 17.3 % (11.9-15.9) H 07/16/19 09:00 Plt Count 318 K/MM3 (134-434) D 07/16/19 09:00 MPV 7.3 fl (7.5-11.1) L 07/16/19 09:00 Sodium 142 mmol/L (136-145) 07/16/19 09:00 Potassium 4.0 mmol/L (3.5-5.1) 07/16/19 09:00 Chloride 107 mmol/L (98-107) 07/16/19 09:00 Carbon Dioxide 30 mmol/L (21-32) 07/16/19 09:00 Anion Gap 5 MMOL/L (8-16) L 07/16/19 09:00 BUN 14.3 mg/dL (7-18) 07/16/19 09:00 Creatinine 0.7 mg/dL (0.55-1.3) 07/16/19 09:00 Est GFR (CKD-EPI)AfAm 142.70 07/16/19 09:00 Est GFR (CKD-EPI)NonAf 123.13 07/16/19 09:00 Random Glucose 80 mg/dL (74-106) 07/16/19 09:00 Calcium 8.6 mg/dL (8.5-10.1) 07/16/19 09:00 Total Bilirubin 0.3 mg/dL (0.2-1) 07/16/19 09:00 AST 10 U/L (15-37) L 07/16/19 09:00 ALT 17 U/L (13-61) 07/16/19 09:00 Alkaline Phosphatase 50 U/L (45-117) 07/16/19 09:00 Total Protein 5.3 g/dl (6.4-8.2) L 07/16/19 09:00 Albumin 3.0 g/dl (3.4-5.0) L 07/16/19 09:00 RPR Titer Nonreactive (NONREACTIVE) 07/16/19 09:00 Assessment: 07/17/19 12:06 withdrawal symptom Plan: continue detox methadone and valium regimen
[2019-07-17] MEDS: MAGNESIUM HYDROX 2400MG/30ML ORAL SUSPENSION 30 ML CUP PO PRN (17:45)
[2019-07-17] MEDS: THIAMINE HCL 100 MG TABLET (FP) PO SCH (21:39)
[2019-07-17] MEDS: MIRTAZAPINE 30 MG TABLET (FP) PO SCH (21:39)
[2019-07-18] MEDS: diazePAM 5 MG TABLET PO PRN ×4 (02:09→17:26)
[2019-07-18] MEDS: GABAPENTIN 300 MG CAPSULE (FP) PO SCH ×3 (05:26→21:51)
[2019-07-18] MEDS ORDERED: diazePAM 5 MG TABLET PO ONE (06:00)
[2019-07-18] MEDS ORDERED: METHADONE HCL 5 MG TABLET (FOR DETOX USE ONLY) PO ONE (06:00)
[2019-07-18] MEDS ORDERED: METHADONE HCL 5 MG TABLET (FOR DETOX USE ONLY) ONE (08:43)
[2019-07-18] MEDS ORDERED: METHADONE HCL 10 MG TABLET (FOR DETOX USE ONLY) ONE (08:43)
[2019-07-18] MEDS ORDERED: METHADONE (DETOX) 10 MG, METHADONE (DETOX) 5 MG PO ONE (10:00)
[2019-07-18] MEDS: PRENATAL VITAMINS W/ FOLIC ACID TABLET (FP) PO SCH (10:08)
[2019-07-18] MEDS: FLUoxetine HCL 20 MG CAPSULE (FP) PO SCH (10:09)
[2019-07-18] MEDS: ATOMOXETINE HCL 40 MG CAPSULE PO SCH (10:09)
[2019-07-18] MEDS: NICOTINE POLACRILEX 4 MG GUM BUC PRN ×5 (10:49→21:15)
[2019-07-18] MEDS: hydrOXYzine PAMOATE 25 MG CAPSULE (FP) PO PRN ×2 (12:12→18:57)
--- NOTE | 2019-07-18 12:56 | PN ---
[facility] CIWA - CIWA Score Nausea/Vomitin-Mild Nausea/No Vomiting Muscle Tremors: 1-None Visible, but Stephens Anxiety: 2 Agitation: 2 Paroxysmal Sweats: No Perspiration Orientation: 0-Oriented Tacttile Disturbances: 0-None Auditory Disturbances: 0-None Visual Disturbances: 0-None Headache: 1-Very Mild CIWA-Ar Total Score: 7 BHS COWS - Scale Resting Pulse: 1= [place] 81-100 Sweatin= No chills or Flushing Restless Observation: 1= Difficult to Sit Still Pupil Size: 0= Normal to Room Light Bone or Joint Aches: 1= Mild Discomfort Runny Nose/ Eye Tearin= Nasal Congestion GI Upset > 30mins: 1= Stomach Cramp Tremor Observation of Outstretched Hands: 1= Tremor [place], Not Seen Yawning Observation: 0= None Anxiety or Irritability: 2=Irritable/Anxious Goose Flesh Skin: 0=Smooth Skin COWS Score: 8 [facility] Progress Note (SOAP) Subjective: alert,irritable,anxious,interrupted sleep,pain in the body Objective: 07/18/19 12:55 Vital Signs Temperature 97.0 F L 07/18/19 09:34 Pulse Rate 100 H 07/18/19 09:34 Respiratory Rate 18 07/18/19 09:34 Blood Pressure 152/77 07/18/19 09:34 O2 Sat by Pulse Oximetry (%) Assessment: 07/18/19 12:56 withdrawal symptom Plan: continue detox,methadone and valium regimen
[2019-07-18] MEDS: CYCLOBENZAPRINE HCL 10 MG TABLET (FP) PO PRN (14:56)
[2019-07-18 15:20] LABS: PH,URINE 5.5 (5.0-8.0); URINE APPEARANCE CLEAR; URINE BILIRUBIN NEGATIVE (NEGATIVE); URINE COLOR YELLOW; URINE GLUCOSE (UA) NEGATIVE (NEGATIVE); URINE KETONE NEGATIVE (NEGATIVE); URINE LEUK ESTERASE NEGATIVE (NEGATIVE); URINE NITRITE NEGATIVE (NEGATIVE); URINE PROTEIN NEGATIVE (NEGATIVE); URINE UROBILINOGEN 0.2 mg/dL (0.2-1.0)
[2019-07-18] MEDS: cloNIDine HCL 0.1 MG TABLET PO PRN (16:50)
[2019-07-18] MEDS: THIAMINE HCL 100 MG TABLET (FP) PO SCH (21:51)
[2019-07-18] MEDS: traZODone HCL 50 MG TABLET (FP) PO PRN (21:51)
[2019-07-18] MEDS: MIRTAZAPINE 30 MG TABLET (FP) PO SCH (21:51)
[2019-07-19] MEDS: CYCLOBENZAPRINE HCL 10 MG TABLET (FP) PO PRN (02:10)
[2019-07-19] MEDS: hydrOXYzine PAMOATE 25 MG CAPSULE (FP) PO PRN (02:10)
[2019-07-19] MEDS: GABAPENTIN 300 MG CAPSULE (FP) PO SCH (05:45)
[2019-07-19] MEDS: NICOTINE POLACRILEX 4 MG GUM BUC PRN (05:46)
[2019-07-19] MEDS: cloNIDine HCL 0.1 MG TABLET PO PRN (07:03)
[2019-07-19 07:14] VITALS: BP 109/63; PULSE 89; TEMP 97.3
[2019-07-19] MEDS ORDERED: METHADONE HCL 10 MG TABLET (FOR DETOX USE ONLY) PO ONE (10:00)
--- NOTE | 2019-07-19 13:54 | DS ---
[facility] Detox Discharge Summary Admission Date: 07/15/19 Discharge Date: 07/19/19 (Left AMA) - History Present History: Alcohol Dependence, Opioid Dependence, Sedative Dependence Additional Comments: Pt left AMA, pt did not complete his detox protocol. Pt states he has to go and take care of something. An attempt to let pt stay and complete his protocol failed. Pt is encouraged to follow-up with [facility] outpatient program and also to follow-up with his PMD. Pt was adamant about information given. Pt is alert and oriented 3 and in no respiratory distress. Pertinent Past History: H/o heroin, benzos, and alcohol use disorder. - Physical Exam Results Vital Signs: Vital Signs Temperature 97.3 F L 07/19/19 07:13 Pulse Rate 89 07/19/19 07:13 Respiratory Rate 18 07/19/19 07:13 Blood Pressure 109/63 07/19/19 07:13 O2 Sat by Pulse Oximetry (%) Vital Signs 07/19/19 07:13 Temperature 97.3 F L Pulse Rate 89 Respiratory 18 Rate Blood Pressure 109/63 Lab Results WBC 10.9 K/mm3 (4.0-10.0) H 07/16/19 09:00 RBC 4.18 M/mm3 (4.00-5.60) 07/16/19 09:00 Hgb 11.9 GM/dL (11.7-16.9) 07/16/19 09:00 Hct 37.0 % (35.4-49) D 07/16/19 09:00 MCV 88.5 fl (80-96) 07/16/19 09:00 MCHC 32.3 g/dl (32.0-35.9) 07/16/19 09:00 RDW 17.3 % (11.9-15.9) H 07/16/19 09:00 Plt Count 318 K/MM3 (134-434) D 07/16/19 09:00 Sodium 142 mmol/L (136-145) 07/16/19 09:00 Potassium 4.0 mmol/L (3.5-5.1) 07/16/19 09:00 Chloride 107 mmol/L (98-107) 07/16/19 09:00 Carbon Dioxide 30 mmol/L (21-32) 07/16/19 09:00 Anion Gap 5 MMOL/L (8-16) L 07/16/19 09:00 BUN 14.3 mg/dL (7-18) 07/16/19 09:00 Creatinine 0.7 mg/dL (0.55-1.3) 07/16/19 09:00 Random Glucose 80 mg/dL (74-106) 07/16/19 09:00 Calcium 8.6 mg/dL (8.5-10.1) 07/16/19 09:00 Labs noted. Pertinent Admission Physical Exam Findings: withdrawal symptoms. - Treatment Hospital Course: Detox Protocol Followed - Medication Discharge Medications: Ambulatory Orders Trazodone HCl 100 mg PO HS 03/07/19 - Diagnosis (1) Alcohol dependence Status: Acute (2) Cocaine dependence Status: Acute (3) Heroin dependence Status: Chronic (4) Nicotine dependence Status: Chronic Qualifiers: Nicotine product type: cigarettes Substance use status: uncomplicated Qualified Code(s): F17.210 - Nicotine dependence, cigarettes, uncomplicated - AMA Did Patient Leave Against Medical Advice: Yes
--- NOTE | 2019-07-19 13:59 | PN ---
[facility] CIWA - CIWA Score Nausea/Vomitin-No Nausea/No Vomiting Muscle Tremors: None Anxiety: 2 Agitation: 1-Slight > Activity Paroxysmal Sweats: 2 Orientation: 0-Oriented Tacttile Disturbances: 0-None Auditory Disturbances: 0-None Visual Disturbances: 0-None Headache: 1-Very Mild CIWA-Ar Total Score: 6 [facility] COWS - Scale Resting Pulse: 0= [place] 80 or Below Sweatin= Chills/Flushing Restless Observation: 1= Difficult to Sit Still Pupil Size: 0= Normal to Room Light Bone or Joint Aches: 0= None Runny Nose/ Eye Tearin= None GI Upset > 30mins: 0= None Tremor Observation of Outstretched Hands: 0= None Yawning Observation: 1= 1-2x During Session Anxiety or Irritability: 2=Irritable/Anxious Goose Flesh Skin: 0=Smooth Skin COWS Score: 5
--- NOTE | 2019-07-19 15:18 | EKG ---
Test Reason : Blood Pressure : / mmHG Vent. Rate : 099 BPM Atrial Rate : 099 BPM P-R Int : 146 ms QRS Dur : 088 ms QT Int : 330 ms P-R-T Axes : 057 044 021 degrees QTc Int : 423 ms NORMAL SINUS RHYTHM NORMAL ECG NO PREVIOUS ECGS AVAILABLE Confirmed by MD RIGO, SERJIO ([id number]) on 07/19/2019 3:18:00 PM Referred By: Confirmed By:SERJIO SIERRA MD
[2019-07-20] MEDS ORDERED: METHADONE HCL 5 MG TABLET (FOR DETOX USE ONLY) PO ONE (06:00)
== END 2019-07-19 09:09 | disposition home or self-care (01) | DRG 773 ==
LOC: YASAS 13:37 → Y6N 19:32
PROVIDERS: ADMIT Surgery; ATTEND Surgery
PROC: HZ2ZZZZ Detoxification Services for Substance Abuse Treatment (ICD-10-PCS; principal; 2019-07-15)
DX: F11.23 Opioid dependence with withdrawal (principal); F10.230 Alcohol dependence with withdrawal, uncomplicated; F13.230 Sedative, hypnotic or anxiolytic dependence with withdrawal, uncomplicated; F14.20 Cocaine dependence, uncomplicated; F12.10 Cannabis abuse, uncomplicated; F17.210 Nicotine dependence, cigarettes, uncomplicated; F19.280 Other psychoactive substance dependence with psychoactive substance-induced anxiety disorder; F19.282 Other psychoactive substance dependence with psychoactive substance-induced sleep disorder; I10 Essential (primary) hypertension; R56.9 Unspecified convulsions
CPT/HCPCS: 36415; 80053; 81003; 85027; 86480; 86593; 93005; 93010; J0735